=== PATIENT | female | born 1980 | race Caucasian/White ===

== ENCOUNTER 2017-08-25 13:48 | Emergency (ER) | payer SELFPAY ==
[2017-08-25] MEDS ORDERED: Dexamethasone IV* 4 MG/ML 1 ML (4 MG) IM ONE (15:44)
[2017-08-25] MEDS ORDERED: Ketorolac INJ* 30 MG/ML 1 ML VIAL IM ONE (15:45)
--- NOTE | 2017-08-25 15:48 | ED ---
Back Pain - HPI Summary HPI Summary: 37-year-old female presents with lower back pain for the past 6 days. She states she has a history of back pain. She states there is nothing different pain location. She states that oxycodone normally reliefs the pain. States she was seen at urgent care 3 days ago gave her dose of oxycodone but it was not enough per patient. She denies any fevers or IV drug use. She denies any loss of bowel or bladder. She denies any injury She states the pain only goes from her left side of her back to her left gluteal muscle. She states the pain is sharp. Does not go down the leg. No weakness. No saddle anesthesia. She has been taking Advil without relief. - History of Current Complaint Chief Complaint: EDBackInjuryPain Stated Complaint: BACK PAIN Time Seen by Provider: 08/25/17 14:56 Hx Last Menstrual Period: 2 YEARS AGO Pain Intensity: 8 - Allergies/Home Medications Allergies/Adverse Reactions: Allergies Allergy/AdvReac Type Severity Reaction Status Date / Time No Known Allergies Allergy Verified 08/25/17 14:26 PMH/Surg Hx/FS Hx/Imm Hx Endocrine/Hematology History: Denies: Hx Anticoagulant Therapy, Hx Diabetes, Hx Thyroid Disease Cardiovascular History: Denies: Hx Hypertension, Hx Pacemaker/ICD Respiratory History: Reports: Hx Asthma - W/DAILY INHALER Denies: Hx Chronic Obstructive Pulmonary Disease (COPD) GI History: Denies: Hx Ulcer History: Denies: Hx Renal Disease Neurological History: Denies: Hx Dementia, Hx Seizures Psychiatric History: Denies: Hx Substance Abuse - Surgical History Surgery Procedure, Year, and Place: 2004 appendectomy with major complications: infection and subsequent bowel resection. - Immunization History Date of Tetanus Vaccine: 2004 Date of Influenza Vaccine: no Infectious Disease History: No Infectious Disease History: Reports: Hx Clostridium Difficile Denies: Hx Hepatitis, Hx Human Immunodeficiency Virus (HIV), Hx of Known/ Suspected MRSA, Hx Shingles, Hx Tuberculosis, Hx Known/Suspected VRE, Hx Known/ Suspected VRSA, History Other Infectious Disease, Traveled Outside the [place] in Last 30 Days - Family History Known Family History: Positive: None - Social History Alcohol Use: Rare Substance Use Type: Reports: Marijuana Substance Use Comment - Amount & Last Used: former IV user Hx Tobacco Use: No Smoking Status (MU): Never Smoked Tobacco Have You Smoked in the Last Year: No Review of Systems Negative: Fever Negative: Chest Pain Negative: Shortness Of Breath Positive: Myalgia - back pain All Other Systems Reviewed And Are Negative: Yes Physical Exam Triage Information Reviewed: Yes Vital Signs On Initial Exam: Initial Vitals Temp Pulse Resp BP Pulse Ox 98.6 F 82 16 151/99 92 08/25/17 14:25 08/25/17 14:25 08/25/17 14:25 08/25/17 14:25 08/25/17 14:25 Vital Signs Reviewed: Yes Appearance: Positive: Well-Appearing Skin: Positive: Warm, Dry Head/Face: Positive: Normal Head/Face Inspection Eyes: Positive: Normal, Conjunctiva Clear Respiratory/Lung Sounds: Positive: Clear to Auscultation, Breath Sounds Present Cardiovascular: Positive: Normal, RRR Musculoskeletal: Positive: Strength/ROM Intact - back, Other - Tenderness on left side Lower back, tenderness of SI joint left, negative straight leg raise, good pulses, sensation grossly intact Neurological: Positive: Normal, Reflexes Intact - Achilles Psychiatric: Positive: Normal Diagnostics - Vital Signs Vital Signs Temp Pulse Resp BP Pulse Ox 08/25/17 14:25 98.6 F 82 16 151/99 92 - Laboratory Lab Statement: Any lab studies that have been ordered have been reviewed, and results considered in the medical decision making process. Back Pain Course/Dx - Course Course Of Treatment: 28-year-old female presents with head injury since mon. She states that the trunk door fell on her head. She denies any loss consciousness. She admits to headache. She denies any nausea vomiting. She states that the area of her forehead around her eye and nose is swelling more. She admits to nasal pressure. She denies any bleeding from her nares. She states she is unable to put on her glasses due swelling of nares. She states her vision is little bit blurry. She denies any numbness or tingling. She denies any weakness. She denies any neck pain. She denies any other injury. She admits to difficulties concentrating. She denies any photophobia. She has no medical conditions. On exam no midline tenderness. Tenderness over SI joint. Negative straight leg raise. Neurovascularly intact. Will treat with Flexeril and Medrol Dosepak. She declined imaging. Patient has follow up on Monday with primary. Patient understands agrees with plan. - Diagnoses Differential Diagnosis/HQI/PQRI: Positive: Herniated Disc, Strain, Sprain Provider Diagnoses: Back pain Discharge - Sign-Out/Discharge Documenting (check all that apply): Discharge - Discharge Plan Condition: Good Disposition: HOME Prescriptions: Methocarbamol TAB* [Robaxin 500 MG TAB*] 750 mg PO TID PRN #15 tab PRN Reason: Pain methylPREDNISolone [Medrol Dosepak 4 MG*] 4 mg PO .SEE ADE INSTRUCTION #1 packet Patient Education Materials: Back Pain (ED) Referrals: Angeles Thomas MD [Primary Care Provider] - Additional Instructions: Follow directions on package for Medrol pack Take muscle relaxers three times a day Use ibuprofen or Tylenol for pain every 6 hours ice/heat area, move as much as possible Follow up with primary within 5 days Return to ED if develop any new or worsening symptoms - Billing Disposition and Condition Condition: GOOD Disposition: HOME
[2017-08-25 16:20] VITALS: BP 146/96
== END 2017-08-25 16:19 | disposition home or self-care (01) ==
LOC: ED 13:48
DX: M54.5 Low back pain (principal)
CPT/HCPCS: 96372; 99282; J1100; J1885

== ENCOUNTER → 2018-10-11 18:10 | Emergency (ER) | payer OTHER ==
[~2018-10-11 18:10] MED LIST: Nitrofurantoin Macrocrystals* 100 MG CAP PO ONE
[2018-10-11 19:38] LABS: Urine Appearance Cloudy; Urine Bacteria 1+ (Absent); Urine Bilirubin Negative (Negative); Urine Blood Negative (Negative); Urine Color Yellow; Urine Glucose Negative (Negative); Urine Ketones Negative (Negative); Urine Nitrite Positive (Negative); Urine Protein Negative (Negative); Urine Red Blood Cell Trace(0-2/hpf) (Absent); Urine Specific Gravity 1.017 (1.010-1.030); Urine Squamous Epithelial Cell Present (Absent); Urine Urobilinogen Negative (Negative); Urine White Blood Cell Trace(0-5/hpf) (Absent)
--- NOTE | 2018-10-11 19:41 | ED ---
Abdominal Pain/Female - HPI Summary HPI Summary: 38 yo female presents to [facility] [place] ED with urinary frequency, body aches, low back pain, and lower abdominal discomfort during urination that has been getting progressively worse over the last week. She tells me that she has a history of multiple medical problems including chronic pain, prior heroin addiction, urinary incontinence, HTN, and asthma. She was unsure if her symptoms were related to something new or her chronic issues having a "flare". She denies fever, chills, vomiting, diarrhea, SOB, or chest pain. - History of Current Complaint Chief Complaint: EDAbdPain Stated Complaint: BACK PAIN/WEAKNESS PER PT Time Seen by Provider: 10/11/18 19:40 Hx Obtained From: Patient Hx Last Menstrual Period: 2 YEARS AGO Onset/Duration: Gradual Onset Severity Initially: Mild Severity Currently: Mild Pain Intensity: 3 Pain Scale Used: 0-10 Numeric Allergies/Adverse Reactions: Allergies Allergy/AdvReac Type Severity Reaction Status Date / Time No Known Allergies Allergy Verified 10/11/18 18:13 PMH/Surg Hx/FS Hx/Imm Hx Endocrine/Hematology History: Denies: Hx Anticoagulant Therapy, Hx Diabetes, Hx Thyroid Disease Cardiovascular History: Denies: Hx Hypertension, Hx Pacemaker/ICD Respiratory History: Reports: Hx Asthma - W/DAILY INHALER Denies: Hx Chronic Obstructive Pulmonary Disease (COPD) GI History: Denies: Hx Ulcer History: Denies: Hx Renal Disease Neurological History: Denies: Hx Dementia, Hx Seizures Psychiatric History: Denies: Hx Substance Abuse - Cancer History Hx Chemotherapy: No Hx Radiation Therapy: No - Surgical History Surgery Procedure, Year, and Place: 2004 appendectomy with major complications: infection and subsequent bowel resection. - Immunization History Date of Tetanus Vaccine: 2004 Date of Influenza Vaccine: no Infectious Disease History: No Infectious Disease History: Reports: Hx Clostridium Difficile Denies: Hx Hepatitis, Hx Human Immunodeficiency Virus (HIV), Hx of Known/ Suspected MRSA, Hx Shingles, Hx Tuberculosis, Hx Known/Suspected VRE, Hx Known/ Suspected VRSA, History Other Infectious Disease, Traveled Outside the [place] in Last 30 Days - Family History Known Family History: Positive: None - Social History Alcohol Use: Rare Substance Use Type: Reports: Marijuana Substance Use Comment - Amount & Last Used: former IV user Hx Tobacco Use: No Smoking Status (MU): Never Smoked Tobacco Have You Smoked in the Last Year: No Review of Systems Positive: Other - Body aches Cardiovascular: Negative Respiratory: Negative Gastrointestinal: Negative Positive: see HPI Neurological: Negative Psychological: Normal All Other Systems Reviewed And Are Negative: Yes Physical Exam - Summary Physical Exam Summary: GENERAL: NAD. WDWN. No pain distress. SKIN: No rashes, sores, lesions, or open wounds. NECK: Supple. Nontender. No lymphadenopathy. CHEST: CTAB. No r/r/w. No accessory muscle use. Breathing comfortably and in no distress. CV: RRR. Without m/r/g. Pulses intact. Cap refill <2seconds ABDOMEN: Soft. NTTP. No distention or guarding. No CVA tenderness. Bowel sounds present NEURO: Alert. PSYCH: Age appropriate behavior. Triage Information Reviewed: Yes Vital Signs On Initial Exam: Initial Vitals Temp Pulse Resp BP Pulse Ox 98.0 F 90 20 130/93 95 10/11/18 18:13 10/11/18 18:13 10/11/18 18:13 10/11/18 18:13 10/11/18 18:13 Vital Signs Reviewed: Yes Diagnostics - Vital Signs Vital Signs Temp Pulse Resp BP Pulse Ox 10/11/18 18:13 98.0 F 90 20 130/93 95 - Laboratory Lab Results: Lab Results 10/11/18 Range/Units 19:11 Urine Color Yellow Urine Appearance Cloudy Urine pH 6.0 (5-9) Ur Specific [place] 1.017 (1.010-1.030) Urine Protein Negative (Negative) Urine Ketones Negative (Negative) Urine Blood Negative (Negative) Urine Nitrate Positive A (Negative) Urine Bilirubin Negative (Negative) Urine Urobilinogen Negative (Negative) Ur Leukocyte Esterase Negative (Negative) Urine WBC (Auto) Trace(0-5/hpf) (Absent) Urine RBC (Auto) Trace(0-2/hpf) (Absent) Ur Squamous Epith Cells Present A (Absent) Urine Bacteria 1+ A (Absent) Urine Glucose Negative (Negative) Lab Statement: Any lab studies that have been ordered have been reviewed, and results considered in the medical decision making process. Abdominal Pain Fem Course/Dx - Course Course Of Treatment: UA positive. Discussed with patient that some of her symptoms could be related to her UTI and encouraged her to take the anbx to resolve her UTI and see what symptoms remain then f/u with her PCP for further management of her chronic issues. If she develops worsening discomfort, fever, or new symptoms to return to the ED. - Diagnoses Provider Diagnoses: UTI (urinary tract infection) Discharge - Sign-Out/Discharge Documenting (check all that apply): Patient Departure Patient Received Moderate/Deep Sedation with Procedure: No - Discharge Plan Condition: Stable Disposition: HOME Prescriptions: Nitrofurantoin Monohyd/M-Cryst [Macrobid 100 mg Capsule] 100 mg PO BID #10 cap Patient Education Materials: Urinary Tract Infection in Women (ED) Referrals: Angeles Thomas MD [Primary Care Provider] - 1 Week Jose Angel Rogers MD [Medical Doctor] - If Needed Additional Instructions: If you develop a fever, shortness of breath, chest pain, new or worsening symptoms - please call your PCP or go to the ED immediately. Your blood pressure was high at todays visit. Please see your primary provider within 4 weeks for recheck and re-evaluation. Please follow up with Urology at the number below regarding your urinary incontinence. - Billing Disposition and Condition Condition: STABLE Disposition: Home
[2018-10-11 20:08] VITALS: BP 121/83
--- NOTE | 2018-10-13 07:59 | ED ---
Progress - Progress Note Progress Note: Prelim urine cx reveals >100,000 e. coli. Started on macrobid. Final results pending. Course/Dx - Course Course Of Treatment: UA positive. Discussed with patient that some of her symptoms could be related to her UTI and encouraged her to take the anbx to resolve her UTI and see what symptoms remain then f/u with her PCP for further management of her chronic issues. If she develops worsening discomfort, fever, or new symptoms to return to the ED. - Diagnoses Provider Diagnoses: UTI (urinary tract infection) Discharge - Sign-Out/Discharge Documenting (check all that apply): Post-Discharge Follow Up Patient Received Moderate/Deep Sedation with Procedure: No - Discharge Plan Condition: Stable Disposition: HOME Prescriptions: Nitrofurantoin Monohyd/M-Cryst [Macrobid 100 mg Capsule] 100 mg PO BID #10 cap Patient Education Materials: Urinary Tract Infection in Women (ED) Referrals: Angeles Thomas MD [Primary Care Provider] - 1 Week Jose Angel Rogers MD [Medical Doctor] - If Needed Additional Instructions: If you develop a fever, shortness of breath, chest pain, new or worsening symptoms - please call your PCP or go to the ED immediately. Your blood pressure was high at todays visit. Please see your primary provider within 4 weeks for recheck and re-evaluation. Please follow up with Urology at the number below regarding your urinary incontinence. - Billing Disposition and Condition Condition: STABLE Disposition: Home
== END | disposition home or self-care (01) ==
LOC: ED 18:10
DX: N39.0 Urinary tract infection, site not specified (principal); M54.9 Dorsalgia, unspecified; F11.21 Opioid dependence, in remission
CPT/HCPCS: 81003; 81015; 87077; 87086; 87186; 99282; A9270-GY

== ENCOUNTER 2018-12-02 19:46 | Emergency (ER) | payer OTHER ==
--- OUTSIDE RECORDS SUMMARY | 2018-12-02 20:11 | XMS REPORT | Continuity of Care Document ---
:1980 External Reference #:[id number] Author Name Edwige Monge Care Team Providers Name Role Phone Angeles Thomas MD Primary Care Physician Unavailable Payers Date Identification Numbers Payment Provider Subscriber Policy Number: [id number] Boni Vergara Group Name: [id number] [address] PayID: [id number] [place] [address] Problems Active Problems Provider Date Asthma without status asthmaticus Angeles Thomas M.D. 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 Onset: 11/24/2017 Localized, primary osteoarthritis Yenni Bhandari M.D. Onset: 02/23/2018 Achilles tendinitis, left leg Shukri Cornelius MD Onset: 09/21/2018 Achilles tendinitis, right leg Shukri Cornelius MD Onset: 09/21/2018 Ganglion of ankle and foot Shukri Cornelius MD Onset: 09/21/2018 Family History Date Family Member(s) Observation Comments Father Hypertension Father alive and well Mother No Current Problems Mother Cervical Cancer Siblings 3 Siblings - 2 sisters, 1 brother Social History Type Date Description Comments Sex Unknown Marital Status Single Lives With Alone Occupation Currently Working Occupation [employer] Tobacco Use Start: Unknown Never Smoked Cigarettes ETOH Use Currently consumes 0-4 drinks per alcohol month Tobacco Use Start: Unknown Patient has never smoked Recreational Drug Use Former Drug User IVDA, heroin [id number] Smoking Status Reviewed: 11/23/18 Patient has never smoked Exercise Type/Frequency Does not exercise Allergies, Adverse Reactions, Alerts Description No Known Drug Allergies Medications Active Medications SIG Qnty Indications Ordering Date Provider Sertraline HCL 1 and half 45tabs Angeles 10/23/2018 50mg tablets by mouth Tracy Thomas Tablets every day Chlorthalidone 1 by mouth every 30tabs Angeles 10/23/2018 25mg day German ThomasDOsei Tablets Bupropion 1 by mouth every 30tabs F11.20 Angeles 09/14/2018 Hydrochloride ER (XL) day Tracy Thomas 300mg Tablets ER 24HR Lisinopril Take One Tablet 30tabs I10 Angeles 09/14/2018 5mg Tablets By Mouth Once Tracy Thomas Daily Ibuprofen Take One Tablet 90tabs Angeles 03/09/2018 600mg Tablets By Mouth Three William M.DOsei Times Daily as Needed Mirtazapine take 1/2 tablet 30tabs Angeles 02/06/2018 15mg by mouth nightly Tracy Thomas Tablets Tizanidine HCL 1 tab by mouth 3 90tabs F11.20 Angeles 02/06/2018 4mg times daily as Tracy Thomas Tablets needed Ventolin HFA inhale 2 puffs by 18gm Angeles 04/24/2015 mouth every 4 to Tracy Thomas 108(90Base) mcg/Act 6 hours as needed Aerosol V[employer] use as instructed 1unbridgett Santana, 10/30/2014 Leonard MCCULLOUGH Device Ondansetron dissolve one 30tabs J45.901 Angeles 08/13/2014 4mg Tablets tablet in the Tracy Thomas Dispers mouth every 8 hours as needed Singulair take 1 tablet by 30tabs Angeles 01/13/2011 10mg Tablets mouth one time Tracy Thomas daily Claritin 1 by mouth every 30tabs Angeles 12/07/2010 10mg Tablets day as needed Tracy Thomas Gabapentin Take One Tablet 90tabs [facility] 800mg By Mouth Three Tracy Thomas Tablets Times Daily Suboxone Bezirganian, 12-3mg Film MD [place] Advair Diskus inhale 1 puff by 60units [facility] mouth two times Tracy Thomas 500-50mcg/Dose daily Aerosol History Medications Lyrica take 1 capsule 60caps G89.4 [facility] 05/18/2018 - 50mg Capsules by mouth twice Tracy Thomas 06/21/2018 a day maximum daily dose of 2 Chlorthalidone Take One Tablet 30tabs I10 [facility] 04/12/2018 - 25mg Tablets By Mouth Once Tracy Thomas 09/14/2018 Daily Bupropion HCL ER (XL) 1 by mouth 30tabs F11.20 [facility] 02/06/2018 - 300mg every day Tracy Thomas 09/14/2018 Tablets ER 24HR Amlodipine Besylate 1 by mouth 30tabs I10 [facility] 02/06/2018 - 2.5mg every day Tracy Thomas 04/12/2018 Tablets Meloxicam 1 by mouth 30tabs M25.569 [facility] 11/24/2017 - 15mg Tablets every day Tracy Thomas 03/09/2018 Medroxyprogesterone one tablet 10tabs N91.1 Anastacio Serna 11/16/2017 - Acetate daily x 10 days 12/13/2017 10mg Tablets Zithromax Z-Zane 2 tabs day#1, 1 6tabs Sondra 02/18/2016 - 250mg Tablets tab daily for 4 MD Max 09/12/2017 days Prednisone 30mg daily for 42tabs J45.901 Sondra 02/11/2016 - 10mg Tablets 1 week, 20mg MD Max 09/12/2017 daily for 1 week, 10 mg daily for 1 week Zoloft Take 1 Tablet 30tabs Lencho Sheffield NP 11/05/2015 - 100mg Tablets By Mouth Every 09/12/2017 Day Clonidine HCL One tablet QHS Lencho Sheffield NP 11/05/2015 - 0.2mg Tablets 09/12/2017 Alprazolam 2 tablets QHS Lencho Sheffield NP 11/05/2015 - 1mg Tablets and 1 tablet 09/04/2017 prn daily Dexedrine 3 by mouth in 150caps Lencho Sheffield NP 11/05/2015 - 10mg Caps ER 24HR the morning and 09/12/2017 2 by mouth in the afternoon Prednisone 6 tabs for 2 42tabs J45.901 Sondra 09/22/2015 - 5mg Tablets days, 5 tabs MD Max 02/11/2016 for 2 days, 4 tabs for 2 days, 3 tabs for 2 days, 1 tab for 6 days Prednisone 6 tabs x 2 17tabs Sondra 07/17/2015 - 5mg Tablets days, 5 tabs x MD Max 09/12/2017 1 day Prednisone take 4 tabs x 1 11tabs J45.901 Lencho Sheffield NP 07/03/2015 - 10mg Tablets day; 3 tabs x 1 07/17/2015 day, 2 tabs x 1 day; 1 tab x 1 day; 1/2 tab x 1 day Doxycycline Hyclate one tablet 8caps S60.529S Lencho Sheffield NP 07/03/2015 - 100mg twice daily for 07/13/2015 Capsules 4 additional days (14 days total) Mupirocin Calcium Apply twice 15gm S60.529S Lencho Sheffield NP 07/03/2015 - 2% Cream daily to Unknown affected area Prednisone (Zane) 6 tabs for 2 42tabs J45.901 Sondra 06/24/2015 - 5mg Tablets days, 5 tabs MD Max 09/22/2015 for 2 days, 4 tabs for 2 days, 3 tabs for 2 days, 1 tab for 6 days Zithromax Z-Zane take as 6tabs J45.901 Sondra 06/24/2015 - 250mg Tablets directed- 2 MD Max 02/18/2016 tabs day#1, 1 tab day#2-4 Prednisone 3 tabs daily 30tabs Sondra 04/24/2015 - 20mg Tablets for 3 days, 2 MD Max 06/23/2015 tabs daily for 3 days, 1 tab daily for 7 days, 1/2 tab for 14 days Prednisone (Zane) take 3 tablets 22tabs Sondra 04/08/2015 - 10mg Tablets for 3 days, 2 MD Max 06/23/2015 tablets for 3 days, 1 tablet for 3 days, 1/2 tablet for 4 days Oxycodone HCL 1 tablet 4 30tabs Lencho Sheffield NP 03/10/2015 - 5mg Tablets times a day as 09/12/2017 needed for pain Prednisone 30mg daily for 42tabs Sondra 12/18/2014 - 10mg Tablets 1 week, 20mg MD Max 04/24/2015 daily for 1 week, 10 mg daily for 1 week Prednisone 20mg daily 7tabs Sondra 11/19/2014 - 20mg Tablets MD Max 12/18/2014 Prednisone 30mg daily for 42tabs Sondra 10/30/2014 - 10mg Tablets 1 week, 20mg MD Max 11/19/2014 daily for 1 week, 10 mg daily for 1 week Fluticasone Propionate 2 intranasal [facility] 10/08/2014 - puffs once Tracy Thomas 03/09/2018 50mcg/Act Suspension daily Prednisone 30mg daily for 42tabs Sondra 09/05/2014 - 10mg Tablets 1 week, 20mg MD Max 10/30/2014 daily for 1 week, 10 mg daily for 1 week Prednisone (Zane) use as directed 20tabs 493.92 Sondra 08/13/2014 - 10mg Tablets MD Max 04/08/2015 Zithromax Z-Zane take as 6tabs J45.901 Sondra 08/13/2014 - 250mg Tablets directed MD Max 06/24/2015 Pulmicort Flexhaler inhale 2 puffs 3units J45.901 Sondra 08/13/2014 - by mouth two MD Max 03/09/2018 180mcg/Act Aerosol times daily Fluticasone Propionate 2 sprays each 16gm 461.9 Sydni Ribeiro, 07/02/2014 - once nostril N.P. 07/16/2014 50mcg/Act Suspension daily Amoxicillin/Clavulanate one tablet by 20tabs 461.9 Sydni Ribeiro, 2014 - Potassium mouth twice N.P. 07/12/2014 875-125mg Tablets daily for 10 days Prednisone 3 tabs by mouth 21tabs 461.9 Sydni Ribeiro, 07/02/2014 - 20mg Tablets x 2 days, then N.P. 09/05/2014 reduce by 1/2 tablet every 2 days until done. Medrol (Zane) use as directed 20tabs Sondra 06/27/2014 - 4mg Tablets MD Max 08/12/2014 Ondansetron 1 tab by mouth 30tabs Sondra 06/27/2014 - 4mg Tablets every 8 hours MD Max 08/13/2014 Dispers as needed Pantoprazole Sodium Take 1 Tablet 30tabs Sondra 05/27/2014 - 40mg By Mouth Every MD Max 11/11/[address] Day Prednisone (Zane) Use as directed 20tabs 493.10 Sondra 05/22/2014 - 10mg Tablets MD Max 08/12/2014 Pantoprazole Sodium Take 1 Tablet 60tabs K21.9 Sondra 05/22/2014 - 20mg By Mouth Two MD Max Unknown Tablets DR Times Daily Spacer (For Inhaled Use spacer with 1units J45.901 Lencho Sheffield NP 2013 - Respiratory Medications) inhaler Unknown medications.. Pulmicort nebulizer twice 60units Sondra 12/05/2013 - 1mg/2ML Suspension a day MD Max 09/12/2017 Ondansetron 1 by mouth 30tabs 493.00 Angeles 12/05/2013 - 4mg Tablets every 8 h as Tracy Thomas 06/27/2014 Dispers needed nausea Proair HFA 2 puffs 4 times 1units 493.90 Angeles 11/07/2013 - 108(90Base) daily as needed Tracy Thomas 01/27/2014 mcg/Act Aerosol Oxycodone HCL 1 tablet by 30caps Lencho Sheffield NP 02/26/2013 - 5mg Capsules mouth four 03/10/2015 times a day as needed for headache Tramadol HCL 1-2 tablets 60tabs Lencho Sheffield NP 02/26/2013 - 50mg Tablets every 6 hours 09/12/2017 as needed Prednisone 3 tabs by mouth 21tabs 493.00 Lencho Sheffield NP 02/26/2013 - 20mg Tablets x 2 days, then 05/21/2014 reduce by 1/2 tablet every 2 days until done. Ventolin HFA 2 puffs every 6 2puffers 493.90 Angeles 08/14/2012 - 108(90Base) hours as Tracy Thomas 02/26/2013 mcg/Act Aerosol needed. Ventolin HFA inhale 2 puffs 36units 493.90 Angeles 08/14/2012 - 108(90Base) by mouth every Tracy Thomas 04/24/2015 mcg/Act Aerosol 6 hours as needed Dexedrine 3 by mouth 150caps Lencho Sheffield NP 05/25/2012 - 10mg Caps ER 24HR every in the 11/05/2015 morning and 2 by mouth at noon Vistaril 1 po q 8h prn 40caps 314.00 [facility] 05/25/2012 - 25mg Capsules anxiety Tracy Thomas 02/26/2013 Ventolin HFA 2 puffs every 6 2puffers 493.90 [facility] 01/13/2011 - 108(90Base) hours as Tracy Thomas 08/14/2012 mcg/ac Aerosol needed. Hydrocodone/Acetaminophe 1-2 tablets 60tabs 724.5 [facility] 12/14/2010 - n every 4 hours Tracy Thomas 02/26/2013 5-325mg Tablets as needed Nebulizer with supplies, 1units 493.90 [facility] 12/07/2010 - use every 4 Tracy Thomas 05/18/2018 hours as needed Advair Diskus 1 inhalation 60units 493.90 [facility] 12/07/2010 - 250-50mcg/Dose twice daily Tracy Thomas 02/26/2013 Aerosol Albuterol Sulfate inhale the 120units J45.909 Sondra 12/07/2010 - (2.5mg/3ML) contents of 1 MD Max Unknown 0.083% Nebulizer vial via nebulizer four times daily as needed Dexedrine 2 tablets twice 120caps 314.00 Angeles 10/01/2010 - 5mg Caps ER 24HR daily, early Tracy Thomas 05/25/2012 morning and mid-day Triamcinolone Acetonide apply thin film 15gm 782.1 Angeles 09/17/2010 - 0.1% twice daily Tracy Thomas 05/25/2012 Cream Dexedrine 1-2 tablets 45caps 314.00 [facility] 09/17/2010 - 5mg Caps ER 24HR once daily in Tracy Thomas 10/01/2010 the morning Hydrocodone/Acetaminophe 1 every 4 hours 40tabs 724.5 [facility] 2010 - n as needed for Tracy Thomas 10/21/2010 5-500mg Tablets pain Vicodin 1-2 by mouth 30tabs Angeles 09/17/2010 - 5-325mg Tablets every 4-6 hours Tracy Thomas 10/21/2010 and needed for pain Flexeril 2 tablets at 30tabs [facility] 09/17/2010 - 5mg Tablets bedtime Tracy Thomas 10/21/2010 Plan B take 1 tablet 1tabs [facility] 12/21/2009 - 0.75mg Tablets one time Tracy Thomas 05/04/2010 Advair Diskus 1 puff twice 60units 493.90 [facility] 08/12/2009 - 100-50mcg/Dose daily Tracy Thomas 12/07/2010 Misc Furosemide 30tabs Unknown - 20mg Tablets 03/09/2018 Losartan Potassium I10 Unknown - 50mg 05/18/2018 Tablets Zolpidem Tartrate Take 1 Tablet Unknown - 5mg Tablets By Mouth Every 05/18/2018 Day AT Bedtime as Needed Maximum Daily DO Alprazolam Take 1 Tablet Member, - 2mg Tablets By Mouth Two MD Darrion 12/25/2017 Times Daily Maximum Daily Dose Of 2 Per Day Wellbutrin XL 1 by mouth 30tabs Angeles - 300mg Tablets every day Tracy Thomas 05/18/2018 ER 24HR Xanax one by mouth up Unknown - 0.25mg Tablets to three times 12/25/2017 daily as needed for anxiety Methocarbamol Take 1 Tablet Unknown - 750mg Tablets By Mouth Three 09/12/2017 Times A Day as Needed For Pain Methylprednisolone Use as Directed Unknown - 4mg TBPK On Pack 09/12/2017 Ibuprofen as needed Unknown - 200mg Capsules 03/09/2018 Budesonide use one vial in Unknown - 0.25mg/2ML nebulizer twice Unknown Suspension daily Bupropion HCL ER (XL) 1 by mouth 30tabs Lencho Yohannes, [employer] - 300mg every day 08/26/2017 Tablets ER 24HR Trinessa 1 po qd 1tabs Angeles - 0.18/0.215/0.25 mg-3 Tracy Thomas 02/26/2013 Tablets Benadryl 1 tablet every Unknown - 25mg Capsules 6 hours as 12/07/2010 needed Advil 100caps Unknown - 200mg Capsules 03/09/2018 Albuterol Inhaler 2 puffs 4 times 2Puffer 493.90 Angeles - daily as needed Tracy Thomas 01/13/2011 Klonopin 1 tablet 4 60tabs Unknown - 1mg Tablets times daily 05/04/2010 Dexedrine 1 tablet once Unknown - 40mg Caps ER 24HR daily 05/04/2010 Lamictal 1 tablet once 30tabs Unknown - 25mg Tablets daily 05/04/2010 Medications Administered in Office Medication SIG Qnty Indications Ordering Provider Date Depomedrol 40MG Yenni Bhandari M.D. 08/22/2018 Injection Depomedrol 40MG Yenni Bhandari M.D. 08/22/2018 Injection Depomedrol 40MG Yenni Bhandari M.D. 05/21/2018 Injection Depomedrol 40MG Yenni Bhandari M.D. 05/21/2018 Injection Depomedrol 40MG Yenni Bhandari M.D. 02/23/2018 Injection Depomedrol 40MG Yenni Bhandari M.D. 02/23/2018 Injection Influenza Virus Vaccine Unknown 04/14/2014 Injection Immunizations CPT Code Status Date Vaccine Lot # [id number] Given 05/06/2014 Flu Vaccine Split Virus Preservative Free For Indiv 3Yr Older 29875 Given 02/26/2013 Flu Vaccine Split Virus Preservative Free For [id number] Indiv 3Yr Older 62465 Given 05/25/2012 Tdap - Tetanus/Diptheria/Acellular Pertussis [id number] Given 03/21/2011 Pneumonia Vaccine [id number] 22430 Given 03/21/2011 Influenza Virus 3Yrs & Over [id number] 99843 Given 05/04/2010 Influenza Virus 3Yrs & Over Vital Signs Date Vital Result Comment 11/23/2018 10:41am Height 70 inches 5'10" Weight 381.00 lb Heart Rate 70 /min BP Systolic 122 mmHg BP Diastolic 86 mmHg O2 % BldC Oximetry 96 % BMI (Body Mass Index) 54.7 kg/m2 10/23/2018 1:34pm Height 70 inches 5'10" Weight 377.00 lb Heart Rate 77 /min BP Systolic 106 mmHg BP Diastolic 70 mmHg O2 % BldC Oximetry 96 % BMI (Body Mass Index) 54.1 kg/m2 09/21/2018 2:52pm Height 70 inches 5'10" Weight 369.00 lb BP Systolic 124 mmHg BP Diastolic 74 mmHg Respiratory Rate 18 /min Pain Level 8 BMI (Body Mass Index) 52.9 kg/m2 08/22/2018 9:50am Height 70 inches 5'10" Weight 369.00 lb Heart Rate 68 /min BP Systolic 118 mmHg BP Diastolic 82 mmHg Respiratory Rate 18 /min Body Temperature 98.9 F Pain Level 5 BMI (Body Mass Index) 52.9 kg/m2 08/20/2018 2:58pm Height 70 inches 5'10" Weight 365.00 lb Heart Rate 78 /min BP Systolic Sitting 120 mmHg BP Diastolic Sitting 85 mmHg O2 % BldC Oximetry 96 % BMI (Body Mass Index) 52.4 kg/m2 06/21/2018 2:48pm Height 70 inches 5'10" Weight 361.00 lb Heart Rate 83 /min BP Systolic Sitting 136 mmHg BP Diastolic Sitting 76 mmHg O2 % BldC Oximetry 96 % BMI (Body Mass Index) 51.8 kg/m2 05/25/2018 3:11pm Height 70 inches 5'10" Weight 351.00 lb Heart Rate 70 /min BP Systolic Sitting 116 mmHg BP Diastolic Sitting 81 mmHg O2 % BldC Oximetry 97 % BMI (Body Mass Index) 50.4 kg/m2 05/21/2018 9:32am Height 70 inches 5'10" Weight 356.00 lb BP Systolic 128 mmHg BP Diastolic 78 mmHg Body Temperature 97.8 F BMI (Body Mass Index) 51.1 kg/m2 05/18/2018 4:19pm Height 70 inches 5'10" 333 Weight 353.00 lb Heart Rate 83 /min BP Systolic Sitting 128 mmHg BP Diastolic Sitting 92 mmHg O2 % BldC Oximetry 96 % BMI (Body Mass Index) 50.6 kg/m2 04/12/2018 1:24pm Height 70 inches 5'10" 333 Weight 351.00 lb Heart Rate 81 /min BP Systolic Sitting 121 mmHg BP Diastolic Sitting 75 mmHg O2 % BldC Oximetry 95 % BMI (Body Mass Index) 50.4 kg/m2 03/23/2018 2:03pm Height 70 inches 333 Weight 333.00 lb Heart Rate 72 /min BP Systolic 136 mmHg BP Diastolic 88 mmHg Respiratory Rate 16 /min Pain Level 0 BMI (Body Mass Index) 47.8 kg/m2 03/09/2018 3:43pm Height 70 inches 5'10" Weight 333.00 lb Heart Rate 66 /min BP Systolic Sitting 119 mmHg BP Diastolic Sitting 80 mmHg O2 % BldC Oximetry 98 % BMI (Body Mass Index) 47.8 kg/m2 02/23/2018 10:42am Height 70 inches 5'10" Weight 325.00 lb Heart Rate 87 /min Respiratory Rate 18 /min Pain Level 9 BMI (Body Mass Index) 46.6 kg/m2 02/06/2018 3:40pm Height 70 inches 5'10" Weight 325.00 lb Heart Rate 92 /min BP Systolic Sitting 138 mmHg BP Diastolic Sitting 96 mmHg O2 % BldC Oximetry 97 % BMI (Body Mass Index) 46.6 kg/m2 11/24/2017 11:18am Height 70 inches 5'10" Weight 303.00 lb Heart Rate 87 /min BP Systolic Sitting 132 mmHg BP Diastolic Sitting 76 mmHg O2 % BldC Oximetry 94 % BMI (Body Mass Index) 43.5 kg/m2 11/16/2017 1:17pm Height 70 inches 5'10" Weight 313.00 lb Heart Rate 68 /min BP Systolic 122 mmHg BP Diastolic 70 mmHg O2 % BldC Oximetry 96 % BMI (Body Mass Index) 44.9 kg/m2 11/06/2017 1:22pm Height 70 inches 5'10" Weight 321.00 lb Heart Rate 72 /min BP Systolic 134 mmHg BP Diastolic 84 mmHg Respiratory Rate 20 /min Body Temperature 97.3 F BMI (Body Mass Index) 46.1 kg/m2 10/19/2017 11:21am Height 70 inches 5'10" Weight 321.00 lb Heart Rate 76 /min BP Systolic Sitting 131 mmHg BP Diastolic Sitting 91 mmHg O2 % BldC Oximetry 93 % BMI (Body Mass Index) 46.1 kg/m2 09/12/2017 9:17am Weight 289.00 lb Heart Rate 64 /min BP Systolic Sitting 120 mmHg BP Diastolic Sitting 80 mmHg Body Temperature 97.9 F O2 % BldC Oximetry 92 % pt's hands are cold 02/11/2016 1:46pm Height 71 inches 5'11" Weight 439.00 lb Heart Rate 95 /min BP Systolic Sitting 148 mmHg BP Diastolic Sitting 88 mmHg Respiratory Rate 24 /min O2 % BldC Oximetry 93 % MD notified BMI (Body Mass Index) 61.2 kg/m2 07/27/2015 3:52pm Heart Rate 83 /min BP Systolic Sitting 120 mmHg BP Diastolic Sitting 70 mmHg Respiratory Rate 18 /min O2 % BldC Oximetry 98 % 07/10/2015 5:04pm Heart Rate 62 /min BP Systolic Sitting 112 mmHg BP Diastolic Sitting 80 mmHg Body Temperature 97.6 F O2 % BldC Oximetry 96 % 07/03/2015 4:17pm Height 71 inches 5'11" Weight 394.00 lb Heart Rate 74 /min BP Systolic Sitting 130 mmHg BP Diastolic Sitting 82 mmHg Respiratory Rate 13 /min Body Temperature 98.9 F O2 % BldC Oximetry 95 % BMI (Body Mass Index) 54.9 kg/m2 06/24/2015 3:51pm Height 71 inches 5'11" Weight 379.00 lb Heart Rate 87 /min BP Systolic Sitting 144 mmHg BP Diastolic Sitting 90 mmHg Respiratory Rate 24 /min O2 % BldC Oximetry 92 % BMI (Body Mass Index) 52.9 kg/m2 09/12/2014 11:29am Height 71 inches 5'11" Weight 325.00 lb Heart Rate 84 /min BP Systolic Sitting 134 mmHg BP Diastolic Sitting 80 mmHg Respiratory Rate 19 /min O2 % BldC Oximetry 97 % BMI (Body Mass Index) 45.3 kg/m2 08/13/2014 2:11pm Height 71 inches 5'11" Weight 324.00 lb Heart Rate 91 /min BP Systolic Sitting 126 mmHg BP Diastolic Sitting 70 mmHg Respiratory Rate 21 /min Body Temperature 96.0 F O2 % BldC Oximetry 92 % BMI (Body Mass Index) 45.2 kg/m2 07/02/2014 3:00pm Height 71 inches 5'11" Weight 324.00 lb Heart Rate 74 /min BP Systolic 122 mmHg BP Diastolic 60 mmHg Body Temperature 97.7 F O2 % BldC Oximetry 94 % BMI (Body Mass Index) 45.2 kg/m2 05/22/2014 2:00pm Height 71 inches 5'11" Weight 334.25 lb w/shoes on Heart Rate 64 /min BP Systolic Sitting 118 mmHg BP Diastolic Sitting 56 mmHg Respiratory Rate 18 /min Body Temperature 98.1 F O2 % BldC Oximetry 99 % BMI (Body Mass Index) 46.6 kg/m2 Neck Circumference in inches 16 05/02/2014 3:44pm Weight 341.00 lb Heart Rate 82 /min BP Systolic 122 mmHg BP Diastolic 78 mmHg O2 % BldC Oximetry 98 % 04/08/2014 10:45am Weight 324.00 lb Heart Rate 83 /min BP Systolic Sitting 118 mmHg BP Diastolic Sitting 68 mmHg Body Temperature 97.8 F 04/03/2014 1:57pm O2 % BldC Oximetry 97 % 02/14/2014 4:14pm Weight 326.00 lb Heart Rate 58 /min BP Systolic Sitting 142 mmHg BP Diastolic Sitting 88 mmHg O2 % BldC Oximetry 95 % 02/12/2014 1:39pm BP Systolic Sitting 140 mmHg BP Diastolic Sitting 90 mmHg Body Temperature 98.1 F O2 % BldC Oximetry 85 % post nebulizer: 91% 12/05/2013 2:27pm Weight 334.00 lb Heart Rate 74 /min Body Temperature 96.4 F O2 % BldC Oximetry 98 % Peak Flow Meter 350 02/26/2013 4:16pm Height 68.5 inches 5'8.50" Weight 349.75 lb Heart Rate 68 /min BP Systolic Standing 118 mmHg BP Diastolic Standing 80 mmHg O2 % BldC Oximetry 95 % Peak Flow Meter 440 BMI (Body Mass Index) 52.4 kg/m2 05/25/2012 2:53pm Height 68.5 inches 5'8.50" Weight 303.00 lb Heart Rate 80 /min BP Systolic Sitting 108 mmHg BP Diastolic Sitting 80 mmHg BMI (Body Mass Index) 45.4 kg/m2 03/21/2011 2:43pm Height 68.5 inches 5'8.50" Weight 292.00 lb Heart Rate 84 /min BP Systolic Sitting 118 mmHg BP Diastolic Sitting 72 mmHg O2 % BldC Oximetry 95 % BMI (Body Mass Index) 43.7 kg/m2 01/13/2011 10:03am Height 68.5 inches 5'8.50" Weight 316.00 lb Heart Rate 74 /min BP Systolic Sitting 128 mmHg BP Diastolic Sitting 82 mmHg O2 % BldC Oximetry 97 % BMI (Body Mass Index) 47.3 kg/m2 12/20/2010 3:48pm Height 68.5 inches 5'8.50" Weight 314.00 lb Heart Rate 64 /min BP Systolic Sitting 122 mmHg BP Diastolic Sitting 74 mmHg Body Temperature 99.0 F BMI (Body Mass Index) 47.0 kg/m2 12/14/2010 4:13pm Height 68.5 inches 5'8.50" Weight 310.00 lb Heart Rate 68 /min BP Systolic Sitting 100 mmHg BP Diastolic Sitting 62 mmHg O2 % BldC Oximetry 94 % BMI (Body Mass Index) 46.4 kg/m2 12/07/2010 4:13pm Height 68.5 inches 5'8.50" Weight 306.00 lb Heart Rate 72 /min BP Systolic Sitting 124 mmHg BP Diastolic Sitting 70 mmHg O2 % BldC Oximetry 89 % BMI (Body Mass Index) 45.8 kg/m2 10/21/2010 3:20pm Height 68.5 inches 5'8.50" Weight 308.00 lb Heart Rate 72 /min BP Systolic Sitting 110 mmHg L BP Diastolic Sitting 62 mmHg L BMI (Body Mass Index) 46.1 kg/m2 09/17/2010 9:21am Height 68.5 inches 5'8.50" Weight 325.00 lb Heart Rate 78 /min BP Systolic Sitting 110 mmHg lg cuff BP Diastolic Sitting 60 mmHg lg cuff BMI (Body Mass Index) 48.7 kg/m2 05/04/2010 4:33pm Weight 300.50 lb Heart Rate 84 /min BP Systolic 104 mmHg large cuff BP Diastolic 72 mmHg large cuff 08/12/2009 2:58pm Weight 298.00 lb Heart Rate 90 /min BP Systolic 130 mmHg BP Diastolic 90 mmHg Results Test Date Facility Test Result H/L Range Note Urinalysis Profile 10/11/2018 [facility] Urine Color Yellow [address] [place] [address] [phone] Urine Appearance Cloudy Urine Specific [place] 1.017 N 1.010-1.030 Urine pH 6.0 N 5-9 Urine Urobilinogen Negative Negative Urine Ketones Negative Negative Urine Protein Negative Negative Urine Leukocytes Negative Negative Urine Blood Negative Negative Urine Nitrite Positive Abnormal Negative Urine Bilirubin Negative Negative Urine Glucose Negative Negative Urine White Blood Cell Trace(0-5/hpf) Absent Urine Red Blood Cell Trace(0-2/hpf) Absent Urine Bacteria 1+ Abnormal Absent Urine Squamous Epithelial Cell Present Abnormal Absent Urine Culture And 10/11/2018 [facility] Urine Culture SEE RESULT [address] [place] [address] [phone] Basic Metabolic 02/13/2018 [facility] Sodium 139 mmol/L N 135- [address] [place] [address] [phone] Potassium 3.9 mmol/L N 3.5-5.0 Chloride 102 mmol/L N 101-111 Co2 Carbon Dioxide 32 mmol/L N 22-32 Anion Gap 5 mmol/L N 2-11 Glucose 80 mg/dL N 70-100 Blood Urea Nitrogen 11 mg/dL N 6-24 Creatinine 0.94 mg/dL N 0.51-0.95 BUN/Creatinine Ratio 11.7 N 8-20 Calcium 9.3 mg/dL N 8.6-10.3 Egfr Non- 66.3 >60 Egfr 80.2 >60 2 Laboratory test 02/13/2018 [facility] TSH (Thyroid 5.00 mcIU/mL N 0.34-5.[address] Stim [place]orm) [place] [address] [phone] D Dimer Quantitative 236 ng/mL High Less Than 230 3 GC/Chlamydia 11/16/2017 [facility] Chlamydia Negative Negative Amplified [place] [address] [phone] Neisseria gonorrhoeae (GC) Rna Negative Negative Laboratory test 10/19/2017 [facility] Cytology SEE RESULT [address] [place] [address] [phone] Laboratory test 10/02/2017 [facility] Hemoglobin A1c 5.6 % N 4.0-[address] (Glyco HGB) .6 [place] [address] [phone] Comp Metabolic 10/02/2017 [facility] Sodium 138 mmol/L Low 139 -[address] [place] [address] [phone] Potassium 4.4 mmol/L N 3.5-5.0 Chloride 101 mmol/L N 101-111 Co2 Carbon Dioxide 29 mmol/L N 22-32 Anion Gap 8 mmol/L N 2-11 Glucose 74 mg/dL N 70-100 Blood Urea Nitrogen 14 mg/dL N 6-24 Creatinine 0.86 mg/dL N 0.51-0.95 BUN/Creatinine Ratio 16.3 N 8-20 Calcium 9.4 mg/dL N 8.6-10.3 Total Protein 6.7 g/dL N 6.4-8.9 Albumin 3.8 g/dL N 3.2-5.2 Globulin 2.9 g/dL N 2-4 Albumin/Globulin Ratio 1.3 N 1-3 Total Bilirubin 0.50 mg/dL N 0.2-1.0 Alkaline Phosphatase 57 U/L N 34-104 Alt 24 U/L N 7-52 Ast 25 U/L N 13-39 Egfr Non- 73.5 >60 Egfr 94.5 >60 6 Laboratory test 10/02/2017 [facility] FSH (Follicle 7.1 mIU/mL [address] Stim Hormone) [place] [address] [phone] TSH (Thyroid Stim Horm) 6.05 mcIU/mL High 0.34-5.60 Laboratory test 02/11/2016 [facility] Immunoglobulin E 185 kU/L N <=[address] (Ige) [place] [address] [phone] CBC Auto Diff 02/11/2016 [facility] White Blood Count 10.1 N 3.5-10.[address] 10^3/[place] [address] [phone] Red Blood Count 4.32 10^6/uL N 4.0-5.4 Hemoglobin 11.7 g/dL Low 12.0-16.0 Hematocrit 37 % N 35-47 Mean Corpuscular Volume 85 fL N 80-97 Mean Corpuscular Hemoglobin 27 pg N 27-31 Mean Corpuscular HGB Conc 32 g/dL N 31-36 Red Cell Distribution Width 15 % N 10.5-15 Platelet Count 309 10^3/uL N 150-450 Mean Platelet Volume 8 um3 N 7.4-10.4 Abs Neutrophils 6.1 10^3/uL N 1.5-7.7 Abs Lymphocytes 1.1 10^3/uL N 1.0-4.8 Abs Monocytes 1.0 10^3/uL High 0-0.8 Abs Eosinophils 1.8 10^3/uL High 0-0.6 Abs Basophils 0 10^3/uL N 0-0.2 Abs Nucleated RBC 0.01 10^3/uL N Granulocyte % 61.1 % N 38-83 Lymphocyte % 11.2 % Low 25-47 Monocyte % 9.5 % High 1-9 Eosinophil % 17.8 % High 0-6 Basophil % 0.4 % N 0-2 Nucleated Red Blood Cells % 0.1 N Laboratory test 02/11/2016 [facility] Aspergillus Igg 85.0 mg/L N <=102 [address] [place] [address] [phone] Laboratory test 07/03/2015 [facility] Wound Culture/Sensi SEE RESULT [address] [place] [address] [phone] Laboratory test 06/24/2015 [facility] Immunoglobulin E 101 kU/L N <=214 [address] (Ige) [place] [address] [phone] Aspergillus Igg Antibodies 53.7 mg/L N <=102 12 Urinalysis Profile 03/20/2015 [facility] Urine Color Yellow N [address] [place] [address] [phone] Urine Appearance Cloudy N Urine Specific [place] 1.020 N 1.010-1.030 Urine pH 5.0 N 5-9 Urine Urobilinogen Negative N Negative Urine Ketones Negative N Negative Urine Protein Negative N Negative Urine Leukocytes Trace Abnormal Negative Urine Blood Negative N Negative Urine Nitrite Negative N Negative Urine Bilirubin Negative N Negative Urine Glucose Negative N Negative Urine White Blood Cell Trace(0-5/hpf) N Absent Urine Red Blood Cell 1+(3-5/hpf) Abnormal Absent Urine Bacteria 1+ Abnormal Absent Urine Squamous Epithelial Cell Present Abnormal Absent Comp Metabolic Panel 03/20/2015 [facility] Sodium 137 mmol/L N 133-[address] [place] [address] [phone] Potassium 4.1 mmol/L N 3.5-5.0 Chloride 101 mmol/L N 101-111 Co2 Carbon Dioxide 28 mmol/L N 22-32 Anion Gap 8 mmol/L N 2-11 Glucose 113 mg/dL High 70-100 Blood Urea Nitrogen 9 mg/dL N 6-24 Creatinine 0.99 mg/dL High 0.51-0.95 BUN/Creatinine Ratio 9.1 N 8-20 Calcium 9.1 mg/dL N 8.6-10.3 Total Protein 6.4 g/dL N 6.4-8.9 Albumin 4.0 g/dL N 3.2-5.2 Globulin 2.4 g/dL N 2-4 Albumin/Globulin Ratio 1.7 N 1-3 Total Bilirubin 0.60 mg/dL N 0.2-1.0 Alkaline Phosphatase 57 U/L N 34-104 Alt 10 U/L N 7-52 Ast 12 U/L Low 13-39 Egfr Non- 63.1 N >60 Egfr 81.2 N >60 13 Laboratory test 03/20/2015 [facility] Creatine 44 U/L N 10- [address] Kinase(CK) [place] [address] [phone] C Reactive Protein 26.71 mg/L High < 5.00 14 Troponin-I (TnI) 0.01 ng/mL N <0.03 15 Urine 03/20/2015 [facility] Amphetamine Ur Presumptive Abnormal None 16 Drug SCR [address] Screen Posi <SEE Detect ED & [place] [address] NOTE> Clinic [phone] Barbiturates Urine Screen None Detected N None Detect Benzodiazepine Urine Screen Presumptive Posi <SEE NOTE> Abnormal None Detect 17 Urine Cannabinoids Screen None Detected N None Detect Urine Cocaine Screen None Detected N None Detect Urine Opiates Screen Presumptive Posi <SEE NOTE> Abnormal None Detect 18 Urine Phencyclidine Screen None Detected N None Detect 19 Inr/Protime 03/20/2015 [facility] Inr 0.91 N 0.89-1.[address] [place] [address] [phone] Laboratory test 03/20/2015 [facility] Partial 37.6 High 26.0- 36.[address] [place] [address] Time PTT [phone] CBC Auto Diff 03/20/2015 [facility] White Blood 14.8 High 4.8- 10.[address] Count 10^3/uL [place], [place] [id number] [phone] Red Blood Count 4.73 10^6/uL N 4.0-5.4 Hemoglobin 13.4 g/dL N 12.0-16.0 Hematocrit 43 % N 35-47 Mean Corpuscular Volume 90 fL N 80-97 Mean Corpuscular Hemoglobin 28 pg N 27-31 Mean Corpuscular HGB Conc 31 g/dL N 31-36 Red Cell Distribution Width 15 % N 10.5-15 Platelet Count 253 10^3/uL N 150-450 Mean Platelet Volume 8 um3 N 7.4-10.4 Abs Neutrophils 8.9 10^3/uL High 1.5-7.7 Abs Lymphocytes 1.1 10^3/uL N 1.0-4.8 Abs Monocytes 0.8 10^3/uL N 0-0.8 Abs Eosinophils 4.0 10^3/uL High 0-0.6 Abs Basophils 0.1 10^3/uL N 0-0.2 Abs Nucleated RBC 0 10^3/uL N Granulocyte % 59.8 % N 38-83 Lymphocyte % 7.4 % Low 25-47 Monocyte % 5.4 % N 1-9 Eosinophil % 26.9 % High 0-6 Basophil % 0.5 % N 0-2 Nucleated Red Blood Cells % 0 N Laboratory test 03/20/2015 [facility] Lactic Acid 1.2 mmol/L N 0.5-2.[address] [place] [address] [phone] Manual 03/20/2015 [facility] Immature 2 % N 0-[address] [place] [address] [phone] Neutrophil % 58 % N 38-83 Band % 2 % N 0-8 Lymphocytes % 8 % Low 25-47 Monocytes % 2 % N 0-13 Eosinophils % 30 % High 0-6 RBC Morphology Normal N Normal Laboratory test 03/20/2015 [facility] Blood Culture SEE RESULT [address] [place] [address] [phone] Urine Culture And Sensitivities SEE RESULT BELOW 22 Blood Culture 07/17/2011 [facility] M <SEE [address] NOTE> [place] [address] [phone] Comp Metabolic 07/17/2011 [facility] Sodium 136 mmol/L 135-[address] [place] [address] [phone] Potassium 3.7 mmol/L 3.5-5.0 Chloride 98 mmol/L Low 101-111 Co2 (Carbon Dioxide) 29.0 mmol/L 22-32 Anion Gap 9.0 mmol/L 2-11 24 Glucose 115 mg/dL High 70-100 BUN 6 mg/dL 6-24 Creatinine 0.8 mg/dL 0.50-1.40 One Over Creatinine 1.25 BUN/Creatinine Ratio 7.5 Low 8-20 Calcium 8.4 mg/dL 8.1-9.9 Total Protein 6.1 GM/DL Low 6.2-8.1 Albumin 3.6 GM/DL 3.6-5.4 Globulin 2.5 GM/DL 2-4 Albumin/Globulin Ratio 1.4 1-3 Bilirubin Total 0.6 mg/dL 0.4-1.5 25 Alkaline Phosphatase 45 U/L 30-110 Alt (SGPT) 12 U/L Low 14-54 Ast (Sgot) 14 U/L 12-42 eGFR Non- 82.6 > 60 eGFR 106.2 > 60 26 CBC Auto Diff 07/17/2011 [facility] White Blood 15.6 CUMM High 4.8-10.[address] [place] [address] [phone] Red Cell Count 4.59 CUMM 4.2-5.4 Hemoglobin 14.0 g/dL 12.0-16.0 Hematocrit 42 % 35-47 Mean Corpuscular Volume 90 um3 79-97 Mean Corpuscular Hemoglob 30 pg 27-31 Mean Corpuscular HGB Cone 34 g/dL 32-36 Redcell Distribution WDTH 15 % 10.5-15 Platelet Count 321 CUMM 150-450 Mean Platelet Volume 7.8 um3 7.4-10.4 27 Manual Differential 07/17/2011 [facility] Polysegmented 54 % 38-[address] [place] [address] [phone] Band Neutrophil 1 % 0-8 Lymphocyte 32 % 25-47 Monocyte 4 % 0-13 Eosinophil 8 % High 0-6 Atypical Lymph 1 % 0-6 Absolute Neutrophil Count 8.5 RBC Morphology NORMAL Rapid Strep A 02/07/2010 [facility] Rapid Strep The inker and opaquer [address] <SEE NOTE> [place] [address] [phone] CBC With 01/15/2010 [facility] White Blood 9.0 CUMM 4.8-[address] Count 0.8 [place] [address] [phone] Red Cell Count 4.53 CUMM 4.2-5.4 Hemoglobin 14.1 g/dL 12.0-16.0 Hematocrit 41 % 35-47 Mean Corpuscular Volume 91 um3 79-97 Mean Corpuscular Hemoglob 31 pg 27-31 Mean Corpuscular HGB Cone 34 g/dL 32-36 Redcell Distribution WDTH 13 % 10.5-15 Platelet Count 297 CUMM 150-450 Mean Platelet Volume 6.9 um3 Low 7.4-10.4 Gran % 77.0 % 38-83 Lymph % 14.3 % Low 25-47 Mononuclear % 6.8 % 1-9 Eosinophil % 1.5 % 0-6 Basophil % 0.4 % 0-2 Abs Lymphs 1.3 1.0-4.8 Abs Mononuclear 0.6 0-0.8 Absolute Neutrophil Count 6.9 1.5-7.7 Abs Eosinophils 0.1 0-0.6 Abs Basophils 0 0-0.2 29 Comp Metabolic Panel 01/15/2010 [facility] Sodium 137 mmol/L 135-[address] [place] [address] [phone] Potassium 3.2 mmol/L Low 3.5-5.0 Chloride 102 mmol/L 101-111 Co2 (Carbon Dioxide) 25.0 mmol/L 22-32 Anion Gap 10.0 mmol/L 2-11 30 Glucose 123 mg/dL High 70-100 31 BUN 7 mg/dL 6-24 Creatinine 1.10 mg/dL 0.50-1.40 One Over Creatinine 0.90 BUN/Creatinine Ratio 6.4 Low 8-20 Calcium 9.2 mg/dL 8.1-9.9 Total Protein 7.3 GM/DL 6.2-8.1 Albumin 4.4 GM/DL 3.6-5.4 Globulin 2.9 GM/DL 2-4 Albumin/Globulin Ratio 1.5 1-3 Bilirubin Total 1.4 mg/dL 0.4-1.5 32 Alkaline Phosphatase 49 U/L 30-110 Alt (SGPT) 12 U/L Low 14-54 Ast (Sgot) 15 U/L 12-42 eGFR Non- 61.6 > 60 eGFR 74.5 > 60 33 Laboratory test 01/15/2010 [facility] Acetaminophen < 10 g/mL Low 10-30 34 [address] [place], [place] [address] [phone] Alcohol < 10.0 mg/dL None Detected 35 Salicylate < 4.0 mg/dL Less Than 30 36 TSH 1.08 MIU/ML 0.34-5.60 Urine Drug 01/15/2010 [facility] Amphetamines POSITIVE Abnormal None SCR ED [address] [facility] [place] [address] [facility] [phone] Barbituates Urine Screen NONE DETECTED None Detect Benzodiazepine Ur Screen NONE DETECTED None Detect Cannabinoid Urine Screen POSITIVE Abnormal None Detect Cocaine Metabolites Urine NONE DETECTED None Detect Opiates Urine Screen NONE DETECTED None Detect PCP Urine Screen NONE DETECTED None Detect 37 GC/Chlamydia Dna 08/13/2009 [facility] GC By Aptima NEGATIVE Negative 38 Probe [address] [place], [place] [id number] [phone] CHL By Aptima NEGATIVE Negative 39 Comp Metabolic Panel 08/12/2009 [facility] Sodium 136 mmol/L 135-145 [address] [place] [address] [phone] Potassium 4.4 mmol/L 3.5-5.0 Chloride 101 mmol/L 101-111 Co2 (Carbon Dioxide) 28.0 mmol/L 22-32 Anion Gap 7.0 mmol/L 2-11 40 Glucose 93 mg/dL 70-100 41 BUN 9 mg/dL 6-24 Creatinine 1.00 mg/dL 0.50-1.40 One Over Creatinine 1.00 BUN/Creatinine Ratio 9.0 8-20 Calcium 9.7 mg/dL 8.1-9.9 42 Total Protein 6.4 GM/DL 6.2-8.1 Albumin 4.1 GM/DL 3.6-5.4 Globulin 2.3 GM/DL 2-4 Albumin/Globulin Ratio 1.8 1-3 Bilirubin Total 1.0 mg/dL 0.4-1.5 43 Alkaline Phosphatase 56 U/L 30-110 Alt (SGPT) 14 U/L 14-54 Ast (Sgot) 18 U/L 12-42 eGFR Non- 68.7 > 60 eGFR 83.2 > 60 44 Laboratory test 08/12/2009 [facility] BHCG Quantitative < 2.1 0-[address] MIU/[place] [address] [phone] Laboratory test 08/12/2009 [facility] Cytology [address] ----- <[place] [address] NOTE> [phone] CBC With Manual 08/12/2009 [facility] White Blood Count 9.1 CUMM 4.8-10. Diff [address] [place] [address] [phone] Red Cell Count 4.76 CUMM 4.2-5.4 Hemoglobin 14.6 g/dL 12.0-16.0 Hematocrit 44 % 35-47 Mean Corpuscular Volume 92 um3 79-97 Mean Corpuscular Hemoglob 31 pg 27-31 Mean Corpuscular HGB Cone 33 g/dL 32-36 Redcell Distribution WDTH 13 % 10.5-15 Platelet Count 293 CUMM 150-450 Mean Platelet Volume 7.3 um3 Low 7.4-10.4 Polysegmented Neutrophil 58 % 38-83 Band Neutrophil 1 % 0-8 Lymphocyte 30 % 25-47 Monocyte 7 % 0-13 Eosenophil 3 % 0-6 Basophil 1 % 0-2 Absolute Neutrophil Count 5.3 RBC Morphology NORMAL 1 SEE RESULT BELOW Name: DIVYA VERGARA : [address]: Aaron Cardenas MD Acct: [id number] Unit: [id number] AGE: 38 Location: ED Re10/11/18 SEX: F Status: REG ER SPEC: [id number] MJ: 10/11/[address]: Jon BATES REQ: [id number] RECD: 10/11/18 STATUS: KENZIE SANCHEZ DR: [facility] Angeles Thomas MD _ SOURCE: URINE SPDESC: ORDERED: Urine Culture Procedure Result Reported Site Urine Culture Final 10/13/18- 1039 ML Organism 1 ESCHERICHIA COLI [place] Count >100,000 (Many) CFU/ML 1. ESCHERICHIA COLI M.I.C. RX --------- ------ Ampicillin >=32 R Cefazolin <=4 S Cefepime <=1 S Ceftriaxone <=1 S Ciprofloxacin <=0.25 S Gentamicin <=1 S Levofloxacin <=0.12 S Meropenem <=0.25 S Nitrofurantoin <=16 S Tetracycline >=16 R Pipercillin/Tazobactam <=4 S Trimethoprim/Sulfamethoxazole <=20 S Amoxicillin/Clavulanic Acid 16 I Aztreonam <=1 S Contact the Microbiology Department for any additional antibiotic reporting. * ML - Main Lab . END OF REPORT DEPARTMENT OF PATHOLOGY, [address] [place] [address] Andry Payan M.D. Director [facility] # [id number] 2 Because ethnic data is not always readily available, this report includes an eGFR for both -Americans and non- Americans. The National Kidney Disease Education Program (NKDEP) does not endorse the use of the MDRD equation for patients that are not between the ages of 18 and 70, are , have extremes of body size, muscle mass, or nutritional status, or are non- or non-. According to the National Kidney Foundation, irrespective of diagnosis, the stage of the disease is based on the level of kidney function: Stage Description GFR(mL/min/1.73 m(2)) 1 Kidney damage with normal or decreased GFR 90 2 Kidney damage with mild decrease in GFR 60-89 3 Moderate decrease in GFR 30-59 4 Severe decrease in GFR 15-29 5 Kidney failure <15 (or dialysis) 3 Please note: The following may produce a false positive D Dimer test: - Rheumatoid factor greater than 60 IU/ml - Plasma hemoglobin greater than 0.05 gm/dl - Bilirubin greater than 50 mg/dl - Lipids greater than 1000 mg/dl - FDP greater than 20 ug/ml 4 SEE RESULT BELOW Name: DIVYA VERGARA : [address]: Angeles Thomas MD Acct: [id number] Unit: [id number] AGE: 37 Location: [facility] Re10/19/17 SEX: F Status: REG REF SPEC: [id number] MJ: 10/19/17-[address]: Angeles Thomas MD REQ: [id number] RECD: 10/19/17 STATUS: SOUT _ ORDERED: TP IMAGE ANALYS, HPV/Thin Prep, HPV 16/18 GENE COMMENTS: [id number] Negative for Intraepithelial lesion or Malignancy A. Ectocervical/Endocervical Specimen Adequacy: Satisfactory of evaluation Transformation zone component identified Patient Information: HPV: High risk HPV RNA testing regardless of pap results. HPV 16/18 Genotype Reflex Actual Specimen Date: 10/19/17 LMP If Unknown: October 2016 Spec Date if unknown: 2011 ?: N Post Menopausal?: N Hysterectomy?: N Date Time Test Result Flag (u) Normal Range 10/19/17 1205 @ HPV RNA RFLX GE Negative Negative @ @ The high-risk HPV types detected by the assay include: 16, @ 18, 31, 33, 35, 39, 45, 51, 52, 56, 58, 59, 66, and 68. Signed by and Reported on: MADI Fraire(ASCP) [id number] This Pap test was evaluated with the assistance of the [employer] Test Imaging System. Due to cytologic findings at the crossbar frame wirer microscope, comprehensive manual rescreening by a Clinical Engineering Manager may be required. The Pap Smear is a screening test designed to aid in the detection of premalignant and malignant conditions of the uterine cervix. It is not a diagnostic procedure and should not be used as the sole means of detecting cervical cancer. Both false- positive and false- negative reports do occur. Depending on your risk status, a Pap smear should be obtained and evaluated every 1-3 years. END OF REPORT DEPARTMENT OF PATHOLOGY, [address] [place] [address] Anrdy Payan M.D. Director [facility] # [id number] 5 Therapeutic target for the treatment of diabetes mellitus patients is <7% HBA1C, and in selective patients <6.0%. Please refer to [place] [employer] diabetic care guidelines for further information. 6 Because ethnic data is not always readily available, this report includes an eGFR for both -Americans and non- Americans. The National Kidney Disease Education Program (NKDEP) does not endorse the use of the MDRD equation for patients that are not between the ages of 18 and 70, are , have extremes of body size, muscle mass, or nutritional status, or are non- or non-. According to the National Kidney Foundation, irrespective of diagnosis, the stage of the disease is based on the level of kidney function: Stage Description GFR(mL/min/1.73 m(2)) 1 Kidney damage with normal or decreased GFR 90 2 Kidney damage with mild decrease in GFR 60-89 3 Moderate decrease in GFR 30-59 4 Severe decrease in GFR 15-29 5 Kidney failure <15 (or dialysis) 7 Normally menstruating females - Follicular phase 3 - 9 - Mid-cycle peak 4 - 23 - Luteal phase 1 - 6 Postmenopausal females 16 - 114 8 Test Performed by: [facility] [place] [address] Reading Coach: Todd Carlin II, M.D., Ph.D. 9 ADDITIONAL INFORMATION This test was developed and its performance characteristics determined by [facility] in a manner consistent with CLIA requirements. This test has not been cleared or approved by the U.S. Food and Drug Administration. Test Performed by: [place] [address] Reading Coach: Todd Carlin II, M.D., Ph.D. 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 Acct: [id number] Unit: [id number] AGE: 35 Location: [facility] Re07/03/15 SEX: F Status: REG REF SPEC: [id number] MJ: 07/03/15-[address]: Lencho Sheffield NP REQ: [id number] RECD: 07/06/15-1114 STATUS: COMP _ SOURCE: WOUND SPDESC: ORDERED: Culture Stain Specimen Description PURULENT DRAINAGE FROM BLISTER Procedure Result Reported Site Wound/Misc Gram Stain Final 07/06/15- 1449 ML 1+ Neutrophils 1+ Epithelial Cells No Organisms Seen Wound/Misc Culture Final 07/08/15- 0955 ML Organism 1 NORMAL EBONY Quantity 1+ * ML - [facility] ([facility]) . END OF REPORT * ML=Testing performed at [facility] DEPARTMENT OF PATHOLOGY, [address] [place] [address] Andry Payan M.D. Director [facility] # [id number] 11 Test Performed by: [address] [address] Reading Coach: Todd Carlin II, M.D., Ph.D. 12 Test Performed by: [facility] [address] [place] [address] Reading Coach: Todd Carlin II, M.D., Ph.D. 13 Because ethnic data is not always readily available, this report includes an eGFR for both -Americans and non- Americans. The National Kidney Disease Education Program (NKDEP) does not endorse the use of the MDRD equation for patients that are not between the ages of 18 and 70, are , have extremes of body size, muscle mass, or nutritional status, or are non- or non-. According to the National Kidney Foundation, irrespective of diagnosis, the stage of the disease is based on the level of kidney function: Stage Description GFR(mL/min/1.73 m(2)) 1 Kidney damage with normal or decreased GFR 90 2 Kidney damage with mild decrease in GFR 60-89 3 Moderate decrease in GFR 30-59 4 Severe decrease in GFR 15-29 5 Kidney failure <15 (or dialysis) 14 Acute inflammation: >10.00 15 Reference Range and Interpretation: TnI (ng/mL) Interpretation Less Than 0.03 ng/mL Not supportive of diagnosis of CO 0.03 - 0.50 ng/mL Indeterminate: suggest serial studies if clinically indicated. Greater than 0.5 ng/mL Consistent with diagnosis of CO 16 Presumptive Positive 17 Presumptive Positive 18 Presumptive Positive 19 The urine specimen was tested at the listed cutoffs: Drug class test level (ng/mL) Amphetamines 500 Barbituates 200 Benzodiazepine metabolites 200 Cocaine metabolites 150 Cannabinoids 50 Opiates 300 Pcp 25 This is a screening procedure. Positive results are not confirmed. Specimen was received without chain of custody. Results should be used for medical purposes only. 20 Effective immediately, due to a laboratory mean normal Protime change, the reference range for the INR has changed. 21 SEE RESULT BELOW Name: RACHELL VERGARAKELLY Kirk : [address]: Jimmy Adames DO Acct: [id number] Unit: [id number] AGE: 35 Location: ED Re03/20/15 SEX: F Status: DEP ER SPEC: [id number] MJ: 03/20/15 [facility] DR: Jimmy Adames DO REQ: [id number] RECD: 03/20/15 STATUS: KENZIE SANCHEZ DR: [facility] Angeles Thomas MD _ SOURCE: BLOOD,VENO SPDESC: ORDERED: Blood Cult Procedure Result Verified Site Aerobic Culture Bottle Final 03/25/15- 2145 ML No Growth Day 5 Anaerobic Culture Bottle Final 03/25/15- 2145 ML No Growth Day 5 * ML - [facility] ([facility]) . END OF REPORT * ML=Testing performed at Main Lab DEPARTMENT OF PATHOLOGY, [address] [place] [address] Andry Payan M.D. Director [facility] # [id number] 22 SEE RESULT BELOW Name: DIVYA VERGARA : [address]: Jimmy Adames DO Acct: [id number] Unit: [id number] AGE: 35 Location: ED Re03/20/15 SEX: F Status: DEP ER SPEC: [id number] MJ: 03/20/[address]: Jimmy Adames DO REQ: [id number] RECD: 03/20/15 STATUS: KENZIE SANCHEZ DR: Angeles Thomas MD _ SOURCE: URINE SPDESC: ORDERED: Urine Culture Procedure Result Verified Site Urine Culture Final 03/22/15- 1114 ML Organism 1 NORMAL EBONY [place] Count 25-50,000 (Moderate) CFU/ML * ML - MAIN LAB ([facility]) . END OF REPORT * ML=Testing performed at Main Lab DEPARTMENT OF PATHOLOGY, [address] [place] [address] Andry Payan M.D. Director [facility] # [id number] RUN DATE: 07/22/11 [facility] NMI LIVE PAGE 1 RUN TIME: 2018 Specimen Inquiry RUN USER: INTERFACE Name: DIVYA VERGARA Status: SARAH ER Re07/17/11 Age/Sex: 31/F Unit#: [id number] Location: [facility] : [birth year] SPEC #: [id number] MJ: 07/17/11 STATUS: COMP REQ #: [id number] RECD: 07/17/11-[address]: Todd Benjamin MD SOURCE: BLOOD ENTR: 07/17/[address]: William MCCULLOUGH, Angeles Porter SPDESC: BLOOD,VENO ORDERED: BLOOD CULTURE ACT WKST: BC 07/18/11 #1 Procedure Result Verified Site > AEROBIC CULTURE BOTTLE Final 07/22/112018 ML NO GROWTH AFTER 5 DAYS > ANAEROBIC CULTURE BOTTLE Final 07/22/112018 ML NO GROWTH AFTER 5 DAYS ML - [facility] Permit #[id number] [address] [place] [address] DEPARTMENT OF PATHOLOGY, [address] [place] [address] [facility] Permit #[id number] Tracy Henry M.D. Rotor Coil Taper 24 Anion gap measurement may be of limited value in the presence of any alkalosis, especially in a combined acid base disorder. . 25 A metabolite of Naproxen, O-desmethylnaproxen, has been shown to interfere with the [place] method for measuring total bilirubin. Samples from patients who have taken Naproxen have shown spurious elevation in total bilirubin levels. 26 Because ethnic data is not always readily available, this report includes an eGFR for both -Americans and non- Americans. The National Kidney Disease Education Program (NKDEP) does not endorse the use of the MDRD equation for patients that are not between the ages of 18 and 70, are , have extremes of body size, muscle mass, or nutritional status, or are non- or non-. According to the National Kidney Foundation, irrespective of diagnosis, the stage of the disease is based on the level of kidney function: Stage Description GFR(mL/min/1.73 m(2)) 1 Kidney damage with normal or decreased GFR 90 2 Kidney damage with mild decrease in GFR 60-89 3 Moderate decrease in GFR 30-59 4 Severe decrease in GFR 15-29 5 Kidney failure <15 (or dialysis) 27 Imm. NE 1 28 The inker and opaquer and regulatory agencies both recommend that a throat culture for beta strep be performed if a Rapid Group A Strep assay yields a negative result. Therefore a culture will be automatically performed on all negative samples. POSITIVE FOR GROUP A STREP BY ENZYME IMMUNOASSAY 29 Lymphopenia % 30 Anion gap measurement may be of limited value in the presence of any alkalosis, especially in a combined acid base disorder. . 31 Note change in reference range as of 01/03/08. The change was based on recommendations from the [place] [employer]. 32 A metabolite of Naproxen, O-desmethylnaproxen, has been shown to interfere with the Jendrassik-[place] method for measuring total bilirubin. Samples from patients who have taken Naproxen have shown spurious elevation in total bilirubin levels. 33 Because ethnic data is not always readily available, this report includes an eGFR for both -Americans and non- Americans. The National Kidney Disease Education Program (NKDEP) does not endorse the use of the MDRD equation for patients that are not between the ages of 18 and 70, are , have extremes of body size, muscle mass, or nutritional status, or are non- or non-. According to the National Kidney Foundation, irrespective of diagnosis, the stage of the disease is based on the level of kidney function: Stage Description GFR(mL/min/1.73 m(2)) 1 Kidney damage with normal or decreased GFR 90 2 Kidney damage with mild decrease in GFR 60-89 3 Moderate decrease in GFR 30-59 4 Severe decrease in GFR 15-29 5 Kidney failure <15 (or dialysis) 34 TOXIC LEVELS: GREATER THAN 150 MCG/ML @ 4HR POST INGEST GREATER THAN 50 MCG/ML @ 12HR POST INGEST The detection limit for ACETAMINOPHEN is 10.0 mcg/ml . Values less than 10.0 mcg/ml cannot be accurately measured. . 35 The detection limit for ETHANOL is 10.0 mg/dl . Values less than 10.0 mg/dl cannot be accurately measured. . 36 The detection limit for SALICYLATE is 4.0 mg/dl. Values less than 4.0 mg/dl cannot be accurately measured. . 37 THE URINE SPECIMEN WAS TESTED AT THE LISTED CUTOFFS: DRUG CLASS TEST LEVEL (NG/ML) AMPHETAMINES 300 BARBITUATES 200 BENZODIAZEPINE METABOLITES 200 COCAINE METABOLITES 300 CANNABINOIDS 25 OPIATES 200 PCP 25 THIS IS A SCREENING PROCEDURE. POSITIVE RESULTS ARE NOT CONFIRMED. SPECIMEN WAS RECEIVED WITHOUT CHAIN OF CUSTODY. RESULTS SHOULD BE USED FOR MEDICAL PURPOSES ONLY. . 38 . A negative result does not preclude the presence of a C.trachomatis or N.gonorrhoeae infection because results are dependent on adequate specimen collection, absence of inhibitors, and sufficient rRNA to be detected. Test results may be affected by improper specimen collection, improper specimen storage, technical error, or specimen mixup. . 39 . A negative result does not preclude the presence of a C.trachomatis or N.gonorrhoeae infection because results are dependent on adequate specimen collection, absence of inhibitors, and sufficient rRNA to be detected. Test results may be affected by improper specimen collection, improper specimen storage, technical error, or specimen mixup. . 40 Anion gap measurement may be of limited value in the presence of any alkalosis, especially in a combined acid base disorder. . 41 Note change in reference range as of 01/03/08. The change was based on recommendations from the [place] [employer]. 42 Please note change in reference range effective 07 . 43 A metabolite of Naproxen, O-desmethylnaproxen, has been shown to interfere with the Jendrassik-[place] method for measuring total bilirubin. Samples from patients who have taken Naproxen have shown spurious elevation in total bilirubin levels. 44 Because ethnic data is not always readily available, this report includes an eGFR for both -Americans and non- Americans. The National Kidney Disease Education Program (NKDEP) does not endorse the use of the MDRD equation for patients that are not between the ages of 18 and 70, are , have extremes of body size, muscle mass, or nutritional status, or are non- or non-. According to the National Kidney Foundation, irrespective of diagnosis, the stage of the disease is based on the level of kidney function: Stage Description GFR(mL/min/1.73 m(2)) 1 Kidney damage with normal or decreased GFR 90 2 Kidney damage with mild decrease in GFR 60-89 3 Moderate decrease in GFR 30-59 4 Severe decrease in GFR 15-29 5 Kidney failure <15 (or dialysis) 45 * MALES: < 5.0 MIU/ML NON FEMALES < 5.0 MIU/ML APPROX GESTATIONAL AGE APPROX HCG RANGE 0-1 WEEK < 5.0-50 1-2 WEEKS 50-500 2-3 WEEKS 100-5000 3-4 WEEKS 500-10,000 1-2 MONTHS 10,000-200,000 2-3 MONTHS 15,000-100,000 PLEASE NOTE: The intended use of this assay is the quantitative determination of HCG in human serum or plasma for the early detection of . These assays should not be used to diagnose any condition unrelated to . If an HCG level is inconsistent with, or unsupported by, clinical evidence, results should be confirmed by an alternate HCG method. . 46 ---- RUN DATE: 08/13/09 [facility] NMI LIVE PAGE 1 RUN TIME: 1550 Specimen Inquiry RUN USER: INTERFACE -- Name: DIVYA VERGARA [facility]#: [id number] Status: REG REF Re08/12/09 Age/Sex: 29/F Unit#: [id number] Location: [facility]. : 78 -- Specimen: [id number] SOUT Spec Date: 08/12/[address]: [place] Thomas MD Spec Type: CYTOLOGY Received: 08/13/09-1024 Copies to: SOURCE ECTOCERVICAL/ENDOCERVICAL Thin Prep with Reflex HPV Test PATIENT INFORMATION ACTUAL COLLECTION DATE: 08/12/09 PREVIOUS ABNORMAL PAP SMEARS No LAST MENSTRUAL PERIOD: 08/09/09 ADEQUACY OF SPECIMEN Satisfactory for evaluation * Transformation zone component identified * DIAGNOSIS NEGATIVE FOR INTRAEPITHELIAL LESION OR MALIGNANCY * This Pap test was evaluated with the assistance of the Jibe MobilePrep Pap Test Imaging System. However, due to technical or cytologic issues, the imaging could not be completed. Comprehensive manual rescreening by a Clinical Engineering Manager was performed. The Pap Smear is a screening test designed to aid in the detection of premalign ant and malignant conditions of the uterine cervix. It is not a diagnostic procedure a nd should not be used as the sole means of detecting cervical cancer. Both false- positiv e and false-negative reports do occur. Depending on your risk status, a Pap smear ryne uld be obtained and evaluated every one to three years. Initial evaluation performed by Cindy VASQUEZ(ASCP) 08/13/09 Final Interpretation electronically signed by: Cindy VASQUEZ(ASCP) 08/13/09 1549 -- -- DEPARTMENT OF PATHOLOGY, [address] [place] [address] [facility] Permit #[id number] Tracy Henry M.D. Naval Inspector Dir tita -- Procedures Date Code Description Status 08/22/2018 Inject/Drain Joint/Bursa Major W/O US Completed 05/21/2018 Inject/Drain Joint/Bursa Major W/O US Completed 02/23/2018 Inject/Drain Joint/Bursa Major W/O US Completed 02/22/2018 91883 ECHO Transthoracic, Real-Time 2D With Doppler And Color Completed Flow 02/22/2018 56421 ECHO Transthoracic, Real-Time 2D With Doppler And Color Completed Flow 11/10/2017 [id number] Mammogram Completed 10/01/2014 98702 Polysomnography Sleep Staging 4+ Parameters W/Cpap Completed 07/09/2014 71493 Polysomnography Sleep Staging 4+ Parameters Completed 04/03/2014 89770 Noninvasive Ear Or Pulse Oximetry For Oxygen Saturation Completed 03/21/2011 23145 Noninvasive Ear Or Pulse Oximetry For Oxygen Saturation Completed 01/13/2011 86860 Noninvasive Ear Or Pulse Oximetry For Oxygen Saturation Completed 01/06/2011 04797 ECHO Transthoracic, Real-Time 2D With Doppler And Color Completed Flow 12/07/2010 47987 Noninvasive Ear Or Pulse Oximetry For Oxygen Saturation Completed Encounters Type Date Location Provider Dx Diagnosis Office Visit 10/23/2018 [facility] Internal [place] Thomas, N39.0 Urinary tract 1:00p Medicine - Sergio Molina infection, site not specified F33.9 Major depressive disorder, recurrent, unspecified R60.0 Localized edema Office Visit 09/21/2018 2:30p Orthopedic Shukri Cornelius M76.61 [facility] abreuinicindy, right C.M.A. leg M76.62 Achilles tendinitis, left leg M67.472 Ganglion, left ankle and foot Office Visit 08/20/2018 2:40p [facility] Internal [place] I10 Essential ( primary) Karsten Thomas M.D. hypertension Phoebeob Z12.31 Encntr screen mammogram for malignant neoplasm of breast R92.8 Oth abn and inconclusive findings on dx imaging of breast M79.673 Pain in unspecified foot Office Visit 06/21/2018 2:40p [facility] Internal [place] I10 Essential ( primary) Karsten Thomas M.D. hypertension Phoebeob R63.5 Abnormal weight gain Office Visit 05/25/2018 2:40p [facility] Internal [place] I10 Essential ( primary) Karsten Thomas M.D. hypertension Phoebeob M67.472 Ganglion, left ankle and foot Office Visit 05/18/2018 4:00p [facility] Internal [place] Thomas G89.4 Chronic pain Medicine Johnathan Hill M.D. syndrome I10 Essential (primary) hypertension Office Visit 04/12/2018 1:00p [facility] Internal [place] I10 Essential ( primary) Karsten Thomas M.D. hypertension Phoebeob M76.60 Achilles tendinitis, unspecified leg Office Visit 03/23/2018 2:00p Orthopedic Services Yenni Bhandari, M25.561 Pain in right Of C.M.A. M.D. knee M25.462 Effusion, left knee M25.461 Effusion, right knee M25.562 Pain in left knee M17.0 Bilateral primary osteoarthritis of knee E66.01 Morbid (severe) obesity due to excess calories Z68.42 Body mass index (BMI) 45.0-49.9, adult Office Visit 03/09/2018 3:40p [facility] Internal [place] I10 Essential ( primary) Karsten Thomas M.D. hypertension Ccmob Z68.42 Body mass index (BMI) 45.0-49.9, adult Office Visit 02/23/2018 10:00a Orthopedic Services Yenni Thony, M25.562 Pain in left Of C.M.A. M.D. knee M25.561 Pain in right knee M25.461 Effusion, right knee M25.462 Effusion, left knee M17.0 Bilateral primary osteoarthritis of knee F11.20 Opioid dependence, uncomplicated E66.01 Morbid (severe) obesity due to excess calories Z68.42 Body mass index (BMI) 45.0-49.9, adult Office Visit 02/06/2018 3:40p [facility] Internal [place] F11.20 Opioid dependence, Karsten Thomas M.D. uncomplicated Ccmob M25.569 Pain in unspecified knee R60.0 Localized edema I10 Essential (primary) hypertension Office Visit 11/24/2017 11:20a [facility] Internal [place] M25.569 Pain in Karsten Thomas M.D. unspecified knee Ccmob F11.20 Opioid dependence, uncomplicated Office Visit 11/16/2017 1:30p [facility]ast[facility] S[facility], N91.1 [facility] amenorrhea T40.2x5D Adverse effect of other opioids, subsequent encounter Office Visit 11/06/2017 1:00p Surgical Radha Alcantar, L72.3 Sebaceous cyst [facility] Office Visit 10/19/2017 11:20a [facility] Internal [place] Z12.4 Encounter for Karsten Thomas M.D. screening for malignant neoplasm of cervix N63.10 Unspecified lump in the right breast, unspecified quadrant R94.6 Abnormal results of thyroid function studies N91.2 Amenorrhea, unspecified D22.9 Melanocytic nevi, unspecified Office Visit 09/12/2017 9:00a [facility] Internal [place] D48.61 Neoplasm of Karsten Thomas M.D. uncertain Ccmob behavior of right breast N91.2 Amenorrhea, unspecified R73.01 Impaired fasting glucose Office Visit 02/11/2016 Pulmonology And Sondra J45.901 Unspecified asthma 1:15p [facility] Max with (acute) Laboratory Helper exacerbation G47.33 Obstructive sleep apnea (adult) (pediatric) E66.2 Morbid (severe) obesity with alveolar hypoventilation Office Visit 07/27/2015 3:15p Pulmonology And Sondra G47.33 Obstructive sleep [facility] apnea (adult) Laboratory Helper (pediatric) J45.901 Unspecified asthma with (acute) exacerbation E66.01 Morbid (severe) obesity due to excess calories Office Visit 07/10/2015 4:20p [facility] Internal Lencho Sheffield, S60.522D Blister Medicine - LABORATORY EQUIPMENT INSTALLER (nonthermal) of Ccmob left hand, subsequent encounter S60.521D Blister (nonthermal) of right hand, subsequent encounter Office Visit 07/03/2015 4:00p [facility] Internal Lencho Sheffield J45.901 Unspecified asthma Medicine - LABORATORY EQUIPMENT INSTALLER with (acute) Ccmob exacerbation R60.0 Localized edema S60.521A Blister (nonthermal) of right hand, initial encounter Office Visit 06/24/2015 Pulmonology And Sondra J45.901 Unspecified asthma 3:15p [facility] with (acute) Laboratory Helper exacerbation G47.33 Obstructive sleep apnea (adult) (pediatric) E66.01 Morbid (severe) obesity due to excess calories K21.9 Gastro-esophageal reflux disease without esophagitis Office Visit 09/12/2014 11:30a Pulmonology And Sondra 493.92 Asthma Unspec W/ [facility] Acute Exacerbation Laboratory Helper 327.23 Obstructive Sleep Apnea Adult & Pediatric 278.01 Obesity Morbid 530.81 Esophageal Reflux Office Visit 08/13/2014 2:00p Pulmonology And Sondra 327.23 Obstructive Sleep [facility] Apnea Adult & Laboratory Helper Pediatric 493.92 Asthma Unspec W/ Acute Exacerbation 278.01 Obesity Morbid 530.81 Esophageal Reflux Office Visit 07/02/2014 3:00p [facility] Internal Sydni Ribeiro, 461.9 Sinusitis Acute Medicine - Ccmob N.P. Unspec 461.0 Sinusitis Acute Maxillary 493.92 Asthma Unspec W/ Acute Exacerbation Office Visit 05/22/2014 1:00p Pulmonology And Sondra 493.10 Asthma Intrinsic [facility] Unspecified Laboratory Helper 477.9 Rhinitis Allergic Cause Unspec 530.81 Esophageal Reflux 278.01 Obesity Morbid 780.59 Sleep Disturbances Other Office Visit 05/02/2014 3:30p [facility] Internal Lencho Sheffield NP 493.90 Asthma Unspec W/O Medicine - Status Asthmaticus Ccmob Office Visit 04/08/2014 11:00a [facility] Internal Lencho Sheffield NP 493.90 Asthma Unspec W/O Medicine - Status Asthmaticus Ccmob Office Visit 02/14/2014 4:00p [facility] Internal Lencho Sheffield NP 493.90 Asthma Unspec W/O Medicine - Status Asthmaticus Ccmob Office Visit 02/12/2014 1:30p [facility] Internal Lencho Sheffield NP 493.92 Asthma Unspec W/ Medicine - Acute Exacerbation Ccmob Office Visit 12/05/2013 2:20p [facility] Internal [place] 493.00 Asthma Extrinsic Karsten Thomas M.D. Unspecified Ccmob Office Visit 02/26/2013 4:00p [facility] Internal [place] 493.00 Asthma Extrinsic Medicine Johnathan Thomas M.D. Unspecified Ccmob v04.81 Need For Prophylactic Vaccination & Inoculation/Influenza 784.0 Headache Office Visit 05/25/2012 2:40p [facility] Internal [place] 314.00 Attention Deficit Karsten Thomas M.D. Disorder W/O Ccmob Mention Of Hyperactivity E906.0 Bite Dog v06.1 Wdfivbgjwz-Fvuklrg-Lwaolrhi Combined (DTaP) Office Visit 03/21/2011 DO Not Use [place] 493.90 Asthma Unspec 2:40p Marline Thomas M.D. W/O Status Asthmaticus 314.00 Attention Deficit Disorder W/O Mention Of Hyperactivity v04.81 Need For Prophylactic Vaccination & Inoculation/Influenza v03.82 Streptococcus Pneumoniae Vaccination Spec Other Office Visit 01/13/2011 DO Not Use [place] 493.90 Asthma Unspec 10:00a Marline Thomas M.D. W/O Status Asthmaticus 724.5 Backache Unspec 799.02 Hypoxemia Office Visit 12/20/2010 3:40p DO Not Use Sydni Varn, 787.01 Nausea W/ Laboratory Helper-[place] N.P. Vomiting 919.4 Injury Superficial Insect Bite Oth Mult Unsp Nonv W/O Infect Office Visit 12/14/2010 DO Not Use [place] 493.90 Asthma Unspec 4:20p Marline Thomas M.D. W/O Status Asthmaticus 724.5 Backache Unspec 723.1 Cervicalgia 799.02 Hypoxemia Office Visit 12/07/2010 DO Not Use [place] 493.90 Asthma Unspec W/O 4:00p Marline Thomas M.D. Status Asthmaticus Office Visit 10/21/2010 DO Not Use [place] V70.3 Examination Other 3:20p Marline Thomas M.D. Medical For Administrative Purpose 782.3 Edema 724.5 Backache Unspec 314.00 Attention Deficit Disorder W/O Mention Of Hyperactivity Office Visit 09/17/2010 9:20a DO Not Use [place] 724.5 Backache Marline Thomas M.D. Unspec 314.00 Attention Deficit Disorder W/O Mention Of Hyperactivity 782.1 Rash & Other Nonspec Skin Eruption Office Visit 05/04/2010 DO Not Use [place] 493.90 Asthma Unspec 4:15p Marline Thomas M.D. W/O Status Asthmaticus v04.81 Need For Prophylactic Vaccination & Inoculation/Influenza Office Visit 12/21/2009 DO Not Use [place] V25.09 Contraceptive 4:15p Marline Thomas M.D. Management Other 493.90 Asthma Unspec W/O Status Asthmaticus 620.2 Ovarian Cyst Other & Unspec Office Visit 08/12/2009 3:00p DO Not Use Mor Thomas, 789.9 Abdomen & AT [facility] Tracy Pelvis Symptoms Other V72.31 Routine Tour Agent Examination 493.90 Asthma Unspec W/O Status Asthmaticus Plan of Treatment Future Appointment(s):01/24/2019 3:40 pm - [place] Thomas M.D. at [facility] [place] Thomas M.D.I10 Essential ( primary) hypertensionComments:Your blood pressure is fine. Continue the same medication Keep up going to the gym - work in the poolFoll up:2 months - pls put her on the xqxfpwV40.9 Major depressive disorder, recurrent, unspecifiedComments:Increase the sertraline to 75 mg daily (one and half pills) Reduce the mirtazepine to half tablet daily
[2018-12-02] MEDS ORDERED: Morphine 4 MG/ML VIAL (1 ml) 4 MG/ML VIAL IV ONE (20:47)
[2018-12-02] MEDS ORDERED: Metoclopramide IV* 5 MG/ML 2 ML VIAL IV SLOW PU ONE (20:47)
[2018-12-02] MEDS ORDERED: Ketorolac INJ* 30 MG/ML 1 ML VIAL IV PUSH ONE (20:47)
[2018-12-02] MEDS ORDERED: NS 0.9% 1000 ML** 1,000 ML IV ONE (20:47)
--- NOTE | 2018-12-02 20:58 | ED ---
Back Pain - HPI Summary HPI Summary: Patient is a 38 year old F presenting to [facility] with a chief complaint of intermittent right flank and right lower back pain since this morning, 12/02/18, rated at 7/10 in severity, per triage, described as a slow rolling throb. Patient reports that she thought she was constipated so she took a dose of Magnesia yesterday (12/01/18) at 1730 which led to a small bowel movement 30 minutes later. Patient reports that she felt nausea and stomach distension at that time. Patient reports at midnight last night (12/02/18) she took another dose of magnesia after which she had another small bowel movement. Patient reports that when she woke up this morning she had a small bowel movement without taking medications but after which she started feeling pain in her lower back. Patient reports from (3 days ago) to Monday (1 day ago) her stomach felt hard and she felt nausea but reports the pain was no where near as bad as today. Patient reports diaphoresis and a measured temperature in the 70s F. Patient reports she took Zofran a few times due to the nausea. Patient denies front pain, vomiting, dysuria, and fever. Symptoms aggravated by nothing. Symptoms alleviated by nothing. Per triage, patient denies hx of kidney stones. - History of Current Complaint Chief Complaint: EDFlankPain Stated Complaint: BACK PAIN PER PT Time Seen by Provider: 12/02/18 20:38 Hx Obtained From: Patient Hx Last Menstrual Period: 2 YEARS AGO Onset/Duration: Lasting Hours - since this morning, Still Present Onset/Duration: Started Hours Ago, Still Present Timing: Intermittent Pain Intensity: 7 Pain Scale Used: 0-10 Numeric Character: Throbbing Aggravating Symptom(s): Nothing Alleviating Symptom(s): Nothing Associated Signs And Symptoms: Positive: Flank Pain, Other - denies front pain, vomiting, dysuria reports constipation; reports nausea, constipation, diaphoresis. Negative: Fever - Allergies/Home Medications Allergies/Adverse Reactions: Allergies Allergy/AdvReac Type Severity Reaction Status Date / Time No Known Allergies Allergy Verified 10/11/18 18:13 PMH/Surg Hx/FS Hx/Imm Hx Endocrine/Hematology History: Denies: Hx Anticoagulant Therapy, Hx Diabetes, Hx Thyroid Disease Cardiovascular History: Denies: Hx Hypertension, Hx Pacemaker/ICD Respiratory History: Reports: Hx Asthma - W/DAILY INHALER Denies: Hx Chronic Obstructive Pulmonary Disease (COPD) GI History: Denies: Hx Ulcer History: Denies: Hx Renal Disease Neurological History: Denies: Hx Dementia, Hx Seizures Psychiatric History: Denies: Hx Substance Abuse - Cancer History Hx Chemotherapy: No Hx Radiation Therapy: No - Surgical History Surgery Procedure, Year, and Place: 2004 appendectomy with major complications: infection and subsequent bowel resection. - Immunization History Date of Tetanus Vaccine: 2004 Date of Influenza Vaccine: no Infectious Disease History: Yes Infectious Disease History: Reports: Hx Clostridium Difficile Denies: Hx Hepatitis, Hx Human Immunodeficiency Virus (HIV), Hx of Known/ Suspected MRSA, Hx Shingles, Hx Tuberculosis, Hx Known/Suspected VRE, Hx Known/ Suspected VRSA, History Other Infectious Disease, Traveled Outside the [place] in Last 30 Days - Family History Known Family History: Positive: None - Social History Alcohol Use: Rare Hx Substance Use: Yes Substance Use Type: Reports: Marijuana Substance Use Comment - Amount & Last Used: former IV user Hx Tobacco Use: No Smoking Status (MU): Never Smoked Tobacco Have You Smoked in the Last Year: No Review of Systems Positive: Skin Diaphoresis. Negative: Fever Positive: Nausea, Other - Constipation. Negative: Vomiting Negative: dysuria Musculoskeletal: Other - denies front pain All Other Systems Reviewed And Are Negative: Yes Physical Exam - Summary Physical Exam Summary: VITAL SIGNS: Reviewed. GENERAL: Patient is a Morbidly obese FEMALE who is lying comfortable in the stretcher. Patient is not in any acute respiratory distress. HEAD AND FACE: No signs of trauma. No ecchymosis, hematomas or skull depressions. No sinus tenderness. EYES: PERRLA, EOMI x 2, No injected conjunctiva, no nystagmus. EARS: Hearing grossly intact. Ear canals and tympanic membranes are within normal limits. MOUTH: Oropharynx within normal limits. NECK: Supple, trachea is midline, no adenopathy, no JVD, no carotid bruit, no c- spine tenderness, neck with full ROM CHEST: Symmetric, no tenderness at palpation LUNGS: Clear to auscultation bilaterally. No wheezing or crackles. CVS: Regular rate and rhythm, S1 and S2 present, no murmurs or gallops appreciated. ABDOMEN: RLQ tenderness EXTREMITIES: Right CVA tenderness NEURO: Alert and oriented x 3. No acute neurological deficits. Speech is normal and follows commands. SKIN: Dry and warm Triage Information Reviewed: Yes Vital Signs On Initial Exam: Initial Vitals Temp Pulse Resp BP Pulse Ox 97.5 F 81 18 159/109 95 12/02/18 19:57 12/02/18 19:57 12/02/18 19:57 12/02/18 19:57 12/02/18 19:57 Vital Signs Reviewed: Yes Diagnostics - Vital Signs Vital Signs Temp Pulse Resp BP Pulse Ox 12/02/18 19:57 97.5 F 81 18 159/109 95 - Laboratory Result Diagrams: 12/02/18 23:12 12/02/18 23:12 Lab Statement: Any lab studies that have been ordered have been reviewed, and results considered in the medical decision making process. - CT Abdomen/Pelvis CT CT Interpretation Completed By: Radiologist Summary of CT Findings: Per radiologist,. 1. No CT findings to correlate with patient's symptomatology. Specifically no. obstructing renal or ureteral calculi. 2. Large simple left ovarian cyst and right hydrosalpinx. Recommend follow up. pelvic ultrasound in 6-12 weeks. ED physician has reviewed this imaging report. Re-Evaluation - Re-Evaluation First Eval Re-Evaluation Time: 20:28 Comment: Physician has discussed plan of care with patient. Second Eval Re-Evaluation Time: 23:56 Comment: Physician discussed patient care with patient. Back Pain Course/Dx - Course Course Of Treatment: Patient is a 38 year old F presenting to [facility] with a chief complaint of intermittent right flank and right lower back pain since this morning, 12/02/18, rated at 7/10 in severity, per triage, described as a slow rolling throb. Patient reports that she thought she was constipated so she took a dose of Magnesia yesterday (12/01/18) at 1730 which led to a small bowel movement 30 minutes later. Patient reports that she felt nausea and stomach distension at that time. Patient reports at midnight last night (12/02/18) she took another dose of magnesia after which she had another small bowel movement. Patient reports that when she woke up this morning she had a small bowel movement without taking medications but after which she started feeling pain in her lower back. Patient reports from (3 days ago) to Monday (1 day ago) her stomach felt hard and she felt nausea but reports the pain was no where near as bad as today. Patient reports diaphoresis and a measured temperature in the 70s F. Patient reports she took Zofran a few times due to the nausea. Patient denies front pain, vomiting, dysuria, and fever. Per triage , patient denies hx of kidney stones. Physical exam shows no abnormalities except for patient is morbidly obese and has right CVA tenderness and RLQ tenderness. Bloodwork shows no abnormalities except for WBC 12.6, Absolute Neuts 9.9 H, Absolute Monos 0.9 H, Chloride 98 L, Glucose 111 H, C-Reactive Protein 15.77 H, and Lipase <10 L. Urinalysis shows no abnormalities except for Ur Specific Mccracken 1.009 L, Urine Protein 1+ (30 mg/dl) A, Urine Blood 3+ A, Ur Leukocyte Esterase 2+ A, Urine WBC 3+ (>20/hpf) A, and Urine RBC 3+ (> 10/hpf ) A. Abdomen/Pelvis CT reveals 1. No CT findings to correlate with patient's symptomatology. Specifically no. obstructing renal or ureteral calculi. 2. Large simple left ovarian cyst and right hydrosalpinx. Recommend follow up. pelvic ultrasound in 6-12 weeks. Physician discussed discharge with patient who agrees to discharge. Patient will be discharged. Patient will follow up with Dr. Johnson, obstetrics, within 3 days. - Diagnoses Provider Diagnoses: Ovarian cyst, Urinary tract infection Discharge - Sign-Out/Discharge Documenting (check all that apply): Patient Departure - discharge Patient Received Moderate/Deep Sedation with Procedure: No - Discharge Plan Condition: Stable Disposition: HOME Prescriptions: Levofloxacin TAB* [Levaquin TAB*] 750 mg PO DAILY #7 tab Patient Education Materials: Ovarian Cyst (ED) Referrals: Shannon Johnson MD [Medical Doctor] - 3 Days Additional Instructions: Follow up with Dr. Johnson, obstetrics, within 3 days. PLEASE RETURN TO THE ED IMMEDIATELY FOR WORSENING OR CONCERNING SYMPTOMS. - Attestation Statements Document Initiated by Scribe: Yes Documenting Scribe: Esperanza Berry Provider For Whom Scribe is Documenting (Include Credential): Clement Goodrich MD Scribe Attestation: Esperanza Cadena, scribed for Clement Goodrich MD on 12/03/18 at 0439. Status of Scribe Document: Ready
[2018-12-02 22:20] LABS: Urine Appearance Cloudy; Urine Bacteria Absent (Absent); Urine Bilirubin Negative (Negative); Urine Blood 3+ (Negative); Urine Color Yellow; Urine Glucose Negative (Negative); Urine Ketones Negative (Negative); Urine Nitrite Negative (Negative); Urine Protein 1+(30 mg/dL) (Negative); Urine Red Blood Cell 3+(>10/hpf) (Absent); Urine Specific Gravity 1.009 (1.010-1.030); Urine Urobilinogen Negative (Negative); Urine White Blood Cell 3+(>20/hpf) (Absent)
[2018-12-02 23:34] LABS: ABS Basophils 0.1 10^3/ul (0-0.2); ABS Eosinophils 0.1 10^3/ul (0-0.6); ABS Lymphocytes 1.7 10^3/ul (1.0-4.8); ABS Monocytes 0.9 10^3/ul (0-0.8); ABS Neutrophils 9.9 10^3/ul (1.5-7.7); Eosinophil % 0.8 %; Hematocrit 40 % (35-47); Hemoglobin 13.1 g/dL (12.0-16.0); Lymphocyte % 13.3 %; Mean Corpuscular HGB Conc 33 g/dL (31-36); Mean Corpuscular Hemoglobin 29 pg (27-31); Mean Corpuscular Volume 87 fL (80-97); Mean Platelet Volume 7.8 fL (7.4-10.4); Platelet Count 303 10^3/uL (150-450); Red Blood Count 4.54 10^6 /uL (3.70-4.87); Red Cell Distribution Width 14 % (10-15); White Blood Count 12.6 10^3/uL (3.5-10.8)
[2018-12-02 23:46] LABS: ALT 17 U/L (7-52); AST 15 U/L (13-39); Albumin 4.2 g/dL (3.2-5.2); Albumin/Globulin Ratio 1.3 (1-3); Alkaline Phosphatase 67 U/L (34-104); Anion Gap 7 mmol/L (2-11); BUN/Creatinine Ratio 13.5 (8-20); Blood Urea Nitrogen 12 mg/dL (6-24); C Reactive Protein 15.77 mg/L (<8.01); CO2 Carbon Dioxide 30 mmol/L (22-32); Calcium 9.1 mg/dL (8.6-10.3); Chloride 98 mmol/L (101-111); EGFR Non-African American 70.2 (>60); Globulin 3.3 g/dL (2-4); Glucose 111 mg/dL (70-100); Magnesium 2.1 mg/dL (1.9-2.7); Potassium 3.8 mmol/L (3.5-5.0); Sodium 135 mmol/L (135-145); Total Protein 7.5 g/dL (6.4-8.9)
[2018-12-02 23:53] LABS: HCG Pregnancy 0.74 mIU/mL
[2018-12-03] MEDS ORDERED: Levofloxacin TAB* 250 MG PO ONE (00:01)
[2018-12-03 00:54] VITALS: BP 116/75
== END 2018-12-03 00:52 | disposition home or self-care (01) ==
LOC: ED 19:46
DX: N83.202 Unspecified ovarian cyst, left side (principal); N39.0 Urinary tract infection, site not specified; N70.11 Chronic salpingitis
CPT/HCPCS: 36415; 74176; 80053; 81003; 81015; 83690; 83735; 84702; 85025; 86140; 87077; 87086; 87186; 96361; 96374; 96375; 99282; A9270-GY

== ENCOUNTER 2018-12-10 08:04 | Inpatient (IN) | payer OTHER ==
--- NOTE | 2018-12-10 08:38 | ED ---
Complex/Multi-Sys Presentation - HPI Summary HPI Summary: Patient is a 38 y/o F presenting to ED via EMS with complaints of upper abdominal pain, N/V, decreased appetite and cold sweats. She reports that the pain has been constant since onset two days ago. Dysuria, hematuria, fever and diarrhea are denied, she states that her bowel movements have been normal. Patient additionally notes that she has been having difficulty staying hydrated. On triage, pain is rated 8/10, resting and lying down are noted to alleviate Sx, movement and palpation are noted to aggravate Sx. Patient was recently diagnosed with UTI and is being treated with antibiotics. She notes that she was supposed to finish her antibiotics yesterday but did not do so as she did not think she would be able to keep them down. PSHx of appendectomy for ruptured appendix, she claims that she had three associated surgeries for this condition, including a bowel resection. Gallbladder is still present. Patient is on suboxone and refuses opiates. Patient does not report erythema of eyes, sore throat, chest pain, SOB, cough, myalgia, edema, rash, or dizziness. Home medications and allergies are reviewed. - History Of Current Complaint Hx Obtained From: Patient Onset/Duration: Lasting Days - two, Still Present Timing: Constant, Days Severity Currently: Severe Location: Pain At: - upper abdomen Aggravating Factor(s): movement and palpation Alleviating Factor(s): resting and lying down Associated Signs And Symptoms: Positive: Nausea, Vomiting, Abdominal Pain, Diaphoresis - cold sweats, Other - does not report erythema of eyes, sore throat , myalgia, rash, hematuria; endoreses decreased appetite and difficulty staying hydrated.. Negative: Dizziness, SOB, Cough, Chest Pain, Edema, Diarrhea, Dysuria, Fever - Allergies/Home Medications Allergies/Adverse Reactions: Allergies Allergy/AdvReac Type Severity Reaction Status Date / Time No Known Allergies Allergy Verified 10/11/18 18:13 Home Medications: Home Medications BuPROPion XL* [Bupropion XL*] 300 mg PO DAILY 12/10/18 [History Confirmed ] Buprenorp/Nalox 8-2 MG SL TAB [Suboxone 8-2 mg SL TAB*] 1 tab.sl SL BID [History Confirmed 12/10/18] Chlorthalidone TAB* [Hygroton TAB*] 25 mg PO DAILY 12/10/18 [History Confirmed 12/10/18] Gabapentin CAP(*) [Neurontin 400 mg CAP(*)] 800 mg PO TID 12/10/18 [History Confirmed 12/10/18] Ibuprofen TAB* [Motrin TAB* 600 MG] 600 mg PO Q8H PRN 12/10/18 [History Confirmed 12/10/18] Lisinopril TAB* [Prinivil TAB 5 MG*] 5 mg PO DAILY 12/10/18 [History Confirmed 12/10/18] LoraTADine TAB(NF) [Claritin 10 MG TAB(NF)] 10 mg PO DAILY 12/10/18 [History Confirmed 12/10/18] Mirtazapine TAB* [Remeron TAB*] 7.5 mg PO BEDTIME 12/10/18 [History Confirmed ] Montelukast Sodium TAB* [Singulair 10 MG TAB*] 10 mg PO DAILY 12/10/18 [History Confirmed 12/10/18] Montelukast Sodium TAB* [Singulair 10 MG TAB*] 10 mg PO DAILY 12/10/18 [History Confirmed 12/10/18] Sertraline* [Zoloft*] 75 mg PO DAILY 12/10/18 [History Confirmed 12/10/18] tiZANidine TAB* [Zanaflex TAB*] 4 mg PO TID 12/10/18 [History Confirmed 12/10/18 ] PMH/Surg Hx/FS Hx/Imm Hx Endocrine/Hematology History: Denies: Hx Anticoagulant Therapy, Hx Diabetes, Hx Thyroid Disease Cardiovascular History: Denies: Hx Hypertension, Hx Pacemaker/ICD Respiratory History: Reports: Hx Asthma - W/DAILY INHALER Denies: Hx Chronic Obstructive Pulmonary Disease (COPD) GI History: Denies: Hx Ulcer History: Denies: Hx Renal Disease Neurological History: Denies: Hx Dementia, Hx Seizures Psychiatric History: Denies: Hx Substance Abuse - Cancer History Hx Chemotherapy: No Hx Radiation Therapy: No - Surgical History Surgery Procedure, Year, and Place: 2004 appendectomy with major complications: infection and subsequent bowel resection. - Immunization History Date of Tetanus Vaccine: 2004 Date of Influenza Vaccine: no Infectious Disease History: Reports: Hx Clostridium Difficile Denies: Hx Hepatitis, Hx Human Immunodeficiency Virus (HIV), Hx of Known/ Suspected MRSA, Hx Shingles, Hx Tuberculosis, Hx Known/Suspected VRE, Hx Known/ Suspected VRSA, History Other Infectious Disease - Family History Known Family History: Positive: Hypertension - Social History Alcohol Use: Rare Hx Substance Use: Yes Substance Use Type: Reports: Marijuana Substance Use Comment - Amount & Last Used: former IV user Hx Tobacco Use: No Smoking Status (MU): Never Smoked Tobacco Have You Smoked in the Last Year: No Review of Systems Constitutional: Other - positive - difficulty staying hydrated Positive: Skin Diaphoresis - cold sweats . Negative: Fever Negative: Erythema Negative: Sore Throat Negative: Chest Pain Negative: Shortness Of Breath, Cough Gastrointestinal: Other - positive - decreased appetite Positive: Abdominal Pain, Vomiting, Nausea. Negative: Diarrhea Negative: dysuria, hematuria Negative: Myalgia, Edema Negative: Rash Neurological: Other - negative - dizziness All Other Systems Reviewed And Are Negative: Yes Physical Exam - Summary Physical Exam Summary: Constitutional: Well-developed, Morbidly obese, Alert. (-) Distressed Skin: Warm, Dry HENT: Normocephalic; Atraumatic Eyes: Conjunctiva normal Neck: Musculoskeletal ROM normal neck. (-) JVD, (-) Stridor, (-) Tracheal deviation Cardio: Rhythm regular, rate normal, Heart sounds normal; Intact distal pulses; The pedal pulses are 2+ and symmetric. Radial pulses are 2+ and symmetric. (-) Murmur Pulmonary/Chest wall: Effort normal. (-) Respiratory distress, (-) Wheezes, (-) Rales Abd: Soft, Epigastric and RUQ tenderness noted, no CVA tenderness (-) Distension , (-) Guarding, (-) Rebound Musculoskeletal: (-) Edema Lymph: (-) Cervical adenopathy Neuro: Alert, Oriented x3 Psych: Mood and affect Normal Triage Information Reviewed: Yes Vital Signs On Initial Exam: Initial Vitals Pulse Pulse Ox 76 95 12/10/18 08:16 12/10/18 08:16 Vital Signs Reviewed: Yes Diagnostics - Laboratory Result Diagrams: 12/11/18 09:10 12/12/18 06:57 Lab Statement: Any lab studies that have been ordered have been reviewed, and results considered in the medical decision making process. - CT ABD/PEL CT CT Interpretation Completed By: Radiologist Summary of CT Findings: CT ABD/PEL IMPRESSION: 1. THERE IS DISTENTION OF THE SMALL BOWEL WITHOUT DILATATION WITH TRANSITION TO. DECOMPRESSED SMALL BOWEL WITHIN THE RIGHT HEMIABDOMEN. THE DIFFERENTIAL INCLUDES. PARTIAL/INTERMITTENT VERSUS EARLY OBSTRUCTION. RECOMMEND ATTENTION ON FOLLOW-UP IMAGING. 2. AGAIN NOTED IS A LARGE LEFT OVARIAN CYST WITH RIGHT HYDROSALPINX. 3. BILIARY DILATATION WITH A 2.5 CM DIVERTICULUM OF THE SECOND STAGE OF THE DUODENUM. THIS REPORT WAS REVIEWED BY DR. MONTGOMERY. - Ultrasound GALLBLADDER US Ultrasound Interpretation Completed By: Radiologist Summary of Ultrasound Findings: GALLBLADDER US IMPRESSION: 1. THE COMMON BILE DUCT IS DILATED UP TO 1.2 CM. 2. THE GALLBLADDER IS GROSSLY UNREMARKABLE WITH NO SHADOWING GALLSTONE. THIS REPORT WAS REVIEWED BY DR. MONTGOMERY. TRANSVAGINAL US Ultrasound Interpretation Completed By: Radiologist Summary of Ultrasound Findings: US TRANSVAGINAL IMPRESSION: 1. In the left adnexa there is a cystic structure measuring 6.3 x 7.8 x 5.4 cm that. potentially corresponds to the 11 cm cyst seen on the December 02, 2018 CT examination. Please. correlate to stage of menstruation. 2. There is a mixed echogenicity structure in the right adnexa that is either a complex. multicystic cyst or a dilated right fallopian tube. Please correlate to signs or symptoms. of hydrosalpinx. THIS REPORT WAS REVIEWED BY DR. MONTGOMERY. Re-Evaluation - Re-Evaluation First Eval Re-Evaluation Time: 12:50 Comment: Results of labs and tests were discussed. Patient is agreeable with admission. Complex Multi-Symp Course/Dx Course Of Treatment: Patient is a 38 y/o F presenting to ED via EMS with complaints of upper abdominal pain, N/V, decreased appetite and cold sweats. She reports that the pain has been constant since onset two days ago. Dysuria, hematuria, fever and diarrhea are denied, she states that her bowel movements have been normal. Patient was recently diagnosed with UTI and is being treated with antibiotics. She notes that she was supposed to finish her antibiotics yesterday but did not do so as she did not think she would be able to keep them down. PSHx of appendectomy for ruptured appendix, she claims that she had three associated surgeries for this condition, including a bowel resection. Gallbladder is still present. On physical exam, patient is noted to be morbidly obese, RUQ and epigastric tenderness is noted, no CVA tenderness. Labs showed WBC 16.4, RBC 4.99, MPV 7.3, absolute neuts 14, absolute monos 1, sodium 133, chloride 93, glucose 112, CRP 44.43, AST 13, ALT 10, alk phos 73, lipase 15, beta HCG < 0.60. GALLBLADDER US IMPRESSION: 1. THE COMMON BILE DUCT IS DILATED UP TO 1.2 CM. 2. THE GALLBLADDER IS GROSSLY UNREMARKABLE WITH NO SHADOWING GALLSTONE. US TRANSVAGINAL IMPRESSION: 1. In the left adnexa there is a cystic structure measuring 6.3 x 7.8 x 5.4 cm that. potentially corresponds to the 11 cm cyst seen on the December 02, 2018 CT examination. Please. correlate to stage of menstruation. 2. There is a mixed echogenicity structure in the right adnexa that is either a complex. multicystic cyst or a dilated right fallopian tube. Please correlate to signs or symptoms. of hydrosalpinx. CT ABD/PEL IMPRESSION: 1. THERE IS DISTENTION OF THE SMALL BOWEL WITHOUT DILATATION WITH TRANSITION TO. DECOMPRESSED SMALL BOWEL WITHIN THE RIGHT HEMIABDOMEN. THE DIFFERENTIAL INCLUDES. PARTIAL/INTERMITTENT VERSUS EARLY OBSTRUCTION. RECOMMEND ATTENTION ON FOLLOW-UP IMAGING. 2. AGAIN NOTED IS A LARGE LEFT OVARIAN CYST WITH RIGHT HYDROSALPINX. 3. BILIARY DILATATION WITH A 2.5 CM DIVERTICULUM OF THE SECOND STAGE OF THE DUODENUM. During ED course, patient received Zofran 8 mg IV, lidocaine 15 ml PO, Maalox 30 ml PO, and fluids. UA is still pending. Patient has taken course of Levaquin to which her E.coli was sensitive. Patient's case was discussed with Dr. Tarango, Dr. Tarango accepts the patient for admission. - Diagnoses Provider Diagnoses: Partial small bowel obstruction, Elevated white blood cell count - Physician Notifications Discussed Care Of Patient With: Dara Tarango Time Discussed With Above Provider: 12:53 Instructed by Provider To: Other - Patient's case was discussed with Dr. Tarango , Dr. Tarango accepts the patient for admission. Discharge - Sign-Out/Discharge Documenting (check all that apply): Patient Departure - admit Patient Received Moderate/Deep Sedation with Procedure: No - Discharge Plan Condition: Stable Disposition: ADMITTED TO [facility] - Billing Disposition and Condition Condition: STABLE Disposition: Admitted to [facility] - Attestation Statements Document Initiated by Scribe: Yes Documenting Scribe: AMANDA HERNÁNDEZ Provider For Whom Nikolasibe is Documenting (Include Credential): CAROL MONTGOMERY MD Scribe Attestation: I, AMANDA HERNÁNDEZ, scribed for CRAOL MONTGOMERY MD on 12/17/18 at 0826. Scribe Documentation Reviewed: Yes Provider Attestation: The documentation as recorded by the nikolasibAMANDA briggs accurately reflects the service I personally performed and the decisions made by me, CAROL MONTGOMERY MD Status of Scribe Document: Viewed
[2018-12-10] MEDS ORDERED: Ondansetron INJ* 2 MG/ML VIAL IV ONE ×2 (09:48→15:52)
[2018-12-10 10:57] LABS: ABS Basophils 0.1 10^3/ul (0-0.2); ABS Eosinophils 0.1 10^3/ul (0-0.6); ABS Lymphocytes 1.2 10^3/ul (1.0-4.8); Eosinophil % 0.8 %; Hematocrit 43 % (35-47); Hemoglobin 14.7 g/dL (12.0-16.0); Lymphocyte % 7.5 %; Mean Corpuscular HGB Conc 34 g/dL (31-36); Mean Corpuscular Hemoglobin 29 pg (27-31); Mean Corpuscular Volume 86 fL (80-97); Mean Platelet Volume 7.3 fL (7.4-10.4); Platelet Count 363 10^3/uL (150-450); Red Blood Count 4.99 10^6 /uL (3.70-4.87); Red Cell Distribution Width 13 % (10-15); White Blood Count 16.4 10^3/uL (3.5-10.8)
[2018-12-10 11:26] LABS: Albumin 4.1 g/dL (3.2-5.2); Albumin/Globulin Ratio 1.2 (1-3); BUN/Creatinine Ratio 18.7 (8-20); C Reactive Protein 44.43 mg/L (<8.01); Calcium 9.2 mg/dL (8.6-10.3); EGFR African American 82.8 (>60); EGFR Non-African American 68.5 (>60); Globulin 3.3 g/dL (2-4); Potassium 3.5 mmol/L (3.5-5.0); Total Bilirubin 0.6 mg/dL (0.2-1.0); Total Protein 7.4 g/dL (6.4-8.9)
[2018-12-10] MEDS ORDERED: Iohexol 300* (CONTRAST) 10 ML SDV IV ONE (11:28)
[2018-12-10] MEDS ORDERED: NS 0.9% 1000 ML** 1,000 ML IV ONE ×2 (12:33→12:43)
[2018-12-10] MEDS ORDERED: Lidocaine 2% VISCOUS* 15 ML UDC PO ONE (13:03)
[2018-12-10] MEDS ORDERED: Al Hydrox/Mg Hydrox/Simet LIQ* 30 ML UDC PO ONE (13:03)
[2018-12-10] MEDS ORDERED: Buprenorp/Nalox 8-2 MG SL TAB PO ONE (14:29)
[2018-12-10] MEDS ORDERED: Piperacillin/Tazobac ADVAN(*) 3.375 GM in NS 0.9% 100 ML* 100 ML IVPB ONE (15:50)
[2018-12-10] MEDS ORDERED: Acetaminophen TAB* 325 MG PO PRN (15:52)
[2018-12-10] MEDS ORDERED: Ibuprofen TAB* 600 MG PO PRN (15:54)
[2018-12-10] MEDS ORDERED: Zosyn per Pharmacy* NOTE FOLLOW UP SCH (16:00)
[2018-12-10] MEDS ORDERED: Lactated Ringers 1000 ML Bag* 1,000 ML IV SCH (16:00)
[2018-12-10] MEDS ORDERED: Albuterol 2.5 MG/3 ML NEB.SOL* (0.083%) INH PRN (16:09)
[2018-12-10 16:24] LABS: Urine Appearance Clear; Urine Bilirubin Negative (Negative); Urine Blood Negative (Negative); Urine Color Yellow; Urine Glucose Negative (Negative); Urine Ketones Negative (Negative); Urine Nitrite Negative (Negative); Urine Protein Negative (Negative); Urine Specific Gravity 1.053 (1.010-1.030); Urine Urobilinogen Negative (Negative)
--- NOTE | 2018-12-10 18:05 | HP ---
CC: Dr. Angeles Thomas * ADMISSION HISTORY AND PHYSICAL: DATE OF ADMISSION: 12/10/18 PRIMARY CARE PROVIDER: Dr. Angeles Thomas. MY ATTENDING WHILE IN THE HOSPITAL: Dr. Dara Tarango.* (DICTATED BY JANA LEON) CHIEF COMPLAINT: Abdominal pain since Monday. HISTORY OF PRESENT ILLNESS: Ms. Venegas is a 38-year-old female with past medical history significant for morbid obesity, history of heroin abuse on buprenorphine therapy and obstructive sleep apnea, who presents to the emergency department on Monday. She had relatively sudden onset abdominal pain in her central abdomen with associated nausea and vomiting. She has been unable to tolerate any medications except for her sublingual naloxone or anything except sips of water. Since then, the patient has had a bowel movement yesterday that was nonbloody, but has not passed any gas since then. The patient describes the abdominal pain as sharp, severe and worse with movement and palpitation, radiating down from her abdomen and not up into her right upper quadrant. The patient has a history of appendectomy complicated by 3 abscesses and needing a bowel resection in 2004. The patient was recently diagnosed with a urinary tract infection and took 6 days of levofloxacin for it and has no more symptoms associated with that. The patient has had subjective fevers and chills, but no recorded fevers. The patient denies chest pain, shortness of breath. The patient had a relatively nonfatty meal of scallops and risotto before this pain began. The patient has no sick contacts, no recent changes in medications. The patient came into the emergency department as the pain was getting worse. The patient in the emergency department was found to have an elevated white blood cell count, elevated CRP and chest, abdomen, and pelvis CT consistent with early small-bowel obstruction with a transition point in the right upper quadrant. Due to concern for bowel obstruction, we were asked to evaluate the patient for admission to the hospital. PAST MEDICAL HISTORY: Asthma, GERD, obstructive sleep apnea, ADD, hypertension , history of heroin abuse. PAST SURGICAL HISTORY: Appendectomy in 2004, bowel resection also in 2004. MEDICATIONS: 1. Sertraline 25 mg p.o. daily. 2. Chlorthalidone 25 mg p.o. daily. 3. Bupropion XL 300 mg p.o. daily. 4. Lisinopril 5 mg p.o. daily. 5. Ibuprofen 600 mg p.o. t.i.d. 6. Mirtazapine 15 mg p.o. daily. 7. Tizanidine 4 mg p.o. t.i.d. 8. Ventolin inhaler 1 puff inhalation q.4 to 6 hours. 9. Zofran ODT 4 mg p.o. q.8 hours as needed. 10. Advair 500/50 one inhalation b.i.d. 11. Gabapentin 800 mg p.o. t.i.d. 12. Claritin 10 mg p.o. daily. 13. Singulair 10 mg p.o. daily. FAMILY HISTORY: The patient's mother and father both have high blood pressure. The patient has a sister who is healthy. The patient does not know her grandparents' history. SOCIAL HISTORY: The patient does not smoke, never has; does not abuse alcohol and has not used heroin recently. The patient is unemployed, is not and has no children. REVIEW OF SYSTEMS: A 14-point review of systems was reviewed and is negative as above in the HPI except for the patient has been gaining moderate amount of weight recently. PHYSICAL EXAMINATION GENERAL: The patient is a 38-year-old female who appears stated age and sitting in the bed, in obvious distress from pain. VITAL SIGNS: Temperature 96.6, pulse rate 82, respiratory rate 20, oxygen saturation 95% on room air, blood pressure 143/94. HEENT: Head: Normocephalic, atraumatic. Sclerae anicteric. No conjunctival injection. Nasal mucosa moist. Oral mucosa moist. No pharyngeal erythema, discharge, or exudate. NECK: Supple, nontender. No lymphadenopathy. No carotid bruits auscultated. No JVD. RESPIRATORY: Clear to auscultation bilaterally. No wheezes, rales, or rhonchi. Good air exchange bilaterally. CARDIAC: Regular rate and rhythm. No clicks, murmurs, gallops, or rubs. Pulses are 2+ in the bilateral dorsalis pedis, posterior tibialis and radial areas. No bilateral lower extremity edema or calf tenderness noted. ABDOMEN: Soft, tender to palpation in the middle of the abdomen without rebound nor voluntary or involuntary guarding. No referred rebound. Negative Phipps's sign. Bowel sounds absent. Exam limited by body habitus. GENITOURINARY: No suprapubic or CVA tenderness. NEURO: Cranial nerves II through XII intact. No focal deficits. Alert and oriented x3. PSYCHIATRIC: Pleasant and cooperative. SKIN: Clean, dry, and intact. No rash. DIAGNOSTIC STUDIES/LAB DATA: White blood cell count 16.4, hemoglobin 14.7, platelet count 363. Sodium 136, potassium 3.5, chloride 94, carbon dioxide 29, anion gap 10, BUN 17, creatinine 0.91, glucose 112, lactic acid 0.9, calcium 9.2. Bilirubin 0.6, AST 13, ALT 20, alkaline phosphatase 73, CRP 44.43. Protein 7.4, albumin 4.1, globulin 3.3, lipase is 15. Beta hCG less than 0.6. Studies: Abdomen and pelvis CT read as: There is a distention of the small bowel without dilatation with a transition to decompress small bowel within the right hemiabdomen. Differential includes partial/intermittent versus early obstruction. Again, there was a large ovarian cyst with right hydrosalpinx, biliary dilatation with a 6.25 cm diverticulum in the second stage of duodenum. Gallbladder ultrasound read as common bile duct dilated up to 1.2 cm. Gallbladder is grossly unremarkable with no shadowing gallstone. Transvaginal ultrasound read as: Left adnexa, there is a cystic structure measuring 6.3 x 7.8 x 5.4 cm. There is potentially corresponds to a 11-cm cyst seen on 12/02/[address] examination, please correlate with stage of menstruation. There is a mixed consistency structure of the right adnexa. There is either a complex multicystic cyst or dilated right fallopian tube. Please correlate with signs and symptoms of hydrosalpinx. ASSESSMENT AND PLAN: Impression: Ms. Venegas is a 38-year-old female with past medical history significant for asthma, obstructive sleep apnea, hypertension and history of heroin abuse, who presents to the emergency department with 2 days of abdominal pain, nausea, and vomiting. The patient was found to have a partial small bowel obstruction and admitted to the hospital for supportive care and surgical consult. 1. Partial small bowel obstruction. The patient has signs and symptoms consistent with bowel obstruction. She is not currently passing any flatus. The patient has had a bowel movement a day ago, which was nonbloody. The patient is only able to tolerate sips of water by mouth. The patient's abdominal exam does not show any signs of perforation or peritonitis. The patient will be monitored with serial abdominal exams. The patient will be seen in consultation by Dr. Morales of Surgery. The patient has elevated white blood cell count and subjective fevers and chills. The patient will be started on Zosyn as a precautionary measure. The patient's common bile duct is dilated , though she has no LFT abnormalities nor any signs of gallbladder distention on ultrasound. No further imaging will be ordered at this time, though LFTs will be repeated in the morning for signs and changes consistent with choledocholithiasis will be ordered. The patient will be n.p.o. The patient is requesting pain control only with buprenorphine. The patient will be initially started on an increased dose of her sublingual buprenorphine from home as needed and Butrans patches are available if she would need additional pain control. If the patient's pain is uncontrollable on these methods, a discussion then will be made for use of intravenous opioids, though the patient is currently opposed to this. 2. Asthma. The patient will have p.r.n. nebulizers. The patient is not currently in exacerbation. 3. Obstructive sleep apnea. The patient has never had a sleep study and does not use CPAP at home. 4. Hypertension. The patient will be given fluids. We will hold the patient' s chlorthalidone and lisinopril at this time. Continue the patient's Advair and Singulair. 5. History of heroin abuse. Continue buprenorphine as above for acute pain control. 6. DVT prophylaxis. The patient is low risk, SCDs only. 7. Anxiety/depression. Continue the patient's sertraline and bupropion. 8. FEN. The patient will be n.p.o. The patient will have lactated Ringer's 100 mL an hour. 9. Disposition. The patient admitted inpatient to the hospital. TIME SPENT: Approximately 60 minutes was spent on the admission of this patient , 30 of which were spent [id number] with the patient obtaining history and physical and discussing treatment plan. This plan has been discussed with my attending, Dr. Dara Tarango, and she is in agreement. JANA LEON [id number]/[facility] #: [id number] RONI
[2018-12-10] MEDS: Mometasone/Formoter 200/5 MDI INH SCH (19:13)
[2018-12-10] MEDS: NS 0.9% 1000 ML** 1,000 ML IV SCH (20:24)
[2018-12-10] MEDS: ZOSYN 3.375 GM Q8H per EXTENDED INFUSION IVPB SCH ×2 (20:25)
[2018-12-10] MEDS: PROCHLORPERAZINE INJ 5 MG/ML 2 ML VIAL IV PRN (20:41)
[2018-12-10] MEDS: Gabapentin CAP(*) 400 MG PO SCH (20:46)
[2018-12-10] MEDS: tiZANidine TAB* 2 MG PO SCH (20:46)
[2018-12-10] MEDS: BuPROPion XL* 300 MG TAB.XL PO SCH (20:47)
[2018-12-10] MEDS: Sertraline* 50 MG TAB PO SCH (20:48)
[2018-12-10] MEDS: Buprenorp/Nalox 8-2 MG FILM SL FILM SCH (20:49)
[2018-12-10] MEDS: Ondansetron INJ* 2 MG/ML VIAL IV PRN (22:05)
[2018-12-10] MEDS: Mirtazapine TAB* 15 MG PO SCH (22:10)
--- NOTE | 2018-12-11 01:22 | CONS ---
CONSULTATION REPORT: DATE OF CONSULT: 12/11/18 CHIEF COMPLAINT: Abdominal pain. HISTORY OF PRESENT ILLNESS: This is a pleasant 38-year-old female began having some abdominal discomfort on Monday, 2 days ago. She had some associated nausea and vomiting. She had a bowel movement on Monday. She has not had any recent flatus. She has not had pain like this prior to this since an operation for appendicitis in 2004. No fevers or chills. No blood per rectum. No hematemesis. Workup in the emergency room included laboratory studies which showed an elevated white blood cell count 16,000. CT scan of the abdomen and pelvis was performed which is interpreted as possible small bowel obstruction, partial. Gas and stool are noted in the colon. Question of a transition zone was noted in the right side of the abdomen. PAST MEDICAL HISTORY: Asthma, reflux, obstructive sleep apnea, ADD, hypertension, history of heroin abuse. PAST SURGICAL HISTORY: Appendectomy in 2004, which also involved a bowel resection by report. MEDICATIONS: Include: 1. Sertraline. 2. Chlorthalidone. 3. Bupropion. 4. Lisinopril. 5. Ibuprofen. 6. Mirtazapine. 7. Tizanidine. 8. Ventolin inhaler. 9. Gabapentin. 10. Singulair. 11. Claritin. 12. Advil. 13. Zofran. 14. She was placed on broad spectrum antibiotics, Zosyn, by the admitting service. SOCIAL HISTORY: She does not smoke. She denies using heroin recently. She is unemployed, no children, is not . FAMILY HISTORY: No history of colorectal or breast cancer according to the patient. REVIEW OF SYSTEMS: General: Denies weight loss, change in appetite. HEENT: No changes in vision, hearing, swallowing. No sore throat. Cardiac: No chest pain. Pulmonary: No cough. GI: No blood per rectum. : No hematuria. Skin : Denies rash. Neuro: No headache or dizziness. Musculoskeletal: No extremity weakness. Psych: No anxiety or depression. These were all prior to her recent admission and onset of abdominal pain. PHYSICAL EXAM: General: This pleasant 38-year-old is resting in bed, appears comfortable. Vital signs are stable. HEENT: Sclerae anicteric. Oral mucosa is pink and moist. Neck is supple. Heart is regular. Lungs are clear anteriorly. Abdomen is obese, soft and nondistended. I do not appreciate signs of peritonitis, guarding or rebound. She is tender mildly in general. Nondistended abdomen. Extremities: No clubbing, cyanosis or edema. Skin: No rash, petechiae, or jaundice. Neuro exam was grossly intact. No focal, motor or sensory deficits. IMPRESSION: Bowel obstruction secondary to adhesions is likely. Considered possibly partial on the CT scan. She is currently stable. Our plan will be for reevaluation in the morning with laboratory studies, serial abdominal examinations. She may require surgical intervention, but we will be given a chance at conservative treatment at this point. She is in agreement with the treatment plan and all questions were answered. [id number]/[facility] #: [id number] MTDD
[2018-12-11] MEDS: PROCHLORPERAZINE INJ 5 MG/ML 2 ML VIAL IV PRN (02:21)
[2018-12-11] MEDS ORDERED: Buprenorp/Nalox 8-2 MG FILM SL FILM ONE (03:19)
[2018-12-11] MEDS: Ondansetron INJ* 2 MG/ML VIAL IV PRN ×3 (03:31→15:45)
[2018-12-11] MEDS: ZOSYN 3.375 GM Q8H per EXTENDED INFUSION IVPB SCH ×4 (03:31→11:47)
[2018-12-11] MEDS: NS 0.9% 1000 ML** 1,000 ML IV SCH ×2 (06:20→17:55)
[2018-12-11] MEDS: Mometasone/Formoter 200/5 MDI INH SCH ×2 (07:58→19:26)
--- NOTE | 2018-12-11 08:34 | PN ---
Progress Note - Progress Note Date of Service: 12/11/18 SOAP: Subjective: [] continued pain, no flatus or bm Objective: [ Temp Pulse Resp BP Pulse Ox 97.8 F 68 14 139/81 98 12/11/18 07:47 12/11/18 08:00 12/11/18 08:00 12/11/18 07:47 12/11/18 08:00 Intake & Output 12/09/18 12/10/18 12/11/18 12/12/18 06:59 06:59 06:59 06:59 Intake Total 525 980 Output Total 1050 Balance -525 980 Weight 365 lb 1.6 oz Intake: IV Fluids 105 980 ABX - ZOSYN 105 NS (0.9%) 980 Oral 420 Output: Urine 1050 Other: # Bowel Movements 0 abdomen difficult to examine due to size, but remains tender, no obvious Assessment: []persistent sbo and intermittent pain through the night, pt refused lab work this am Plan: []discussed with patient surgery vs continued observation with risks of each, surgery risks including but not limited to bleeding, infection, injury to bowel/ other intra abdominal contents, persistent sbo explained, she, similar to last night, is interested in surgery, all questions answered.
[2018-12-11] MEDS ORDERED: Sertraline* 50 MG TAB PO SCH ×2 (09:00→22:15)
[2018-12-11] MEDS ORDERED: BuPROPion XL* 300 MG TAB.XL PO SCH ×2 (09:00→22:15)
[2018-12-11] MEDS ORDERED: Lisinopril TAB* 5 MG PO SCH (09:00)
[2018-12-11] MEDS ORDERED: Chlorthalidone TAB* 50 MG PO SCH (09:00)
--- NOTE | 2018-12-11 09:02 | PN ---
Hospitalist Progress Note Date of Service: 12/11/18 Attendign Assessment and Plan HD #2 on 12/11 38 F PMH OUD on MAT in recovery, asthma, GERD, HTN presents with SBO #SBO #OUT on MAT #Ashtma #GERD #HTN: #Depression/anxeiity #DVT #Code
[2018-12-11] MEDS: Buprenorp/Nalox 8-2 MG FILM SL FILM SCH ×4 (09:40→23:30)
[2018-12-11] MEDS: tiZANidine TAB* 2 MG PO SCH ×3 (09:41→22:28)
[2018-12-11] MEDS: Montelukast Sodium TAB* 10 MG PO SCH (09:41)
[2018-12-11] MEDS: Sertraline* 50 MG TAB PO SCH (09:41)
[2018-12-11] MEDS: BuPROPion XL* 300 MG TAB.XL PO SCH (09:41)
[2018-12-11] MEDS: Gabapentin CAP(*) 400 MG PO SCH ×3 (09:41→22:26)
[2018-12-11 10:00] LABS: ABS Eosinophils 0.1 10^3/ul (0-0.6); ABS Lymphocytes 1.3 10^3/ul (1.0-4.8); ABS Monocytes 0.9 10^3/ul (0-0.8); ABS Neutrophils 9.3 10^3/ul (1.5-7.7); Eosinophil % 0.6 %; Hematocrit 39 % (35-47); Hemoglobin 13.2 g/dL (12.0-16.0); Lymphocyte % 11.2 %; Mean Corpuscular HGB Conc 34 g/dL (31-36); Mean Corpuscular Hemoglobin 29 pg (27-31); Mean Corpuscular Volume 86 fL (80-97); Mean Platelet Volume 7.7 fL (7.4-10.4); Nucleated Red Blood Cells % 0.1; Platelet Count 297 10^3/uL (150-450); Red Blood Count 4.52 10^6 /uL (3.70-4.87); Red Cell Distribution Width 13 % (10-15); White Blood Count 11.6 10^3/uL (3.5-10.8)
[2018-12-11 10:28] LABS: Albumin 3.8 g/dL (3.2-5.2); Albumin/Globulin Ratio 1.4 (1-3); BUN/Creatinine Ratio 15.7 (8-20); C Reactive Protein 48.62 mg/L (<8.01); Calcium 8.5 mg/dL (8.6-10.3); EGFR Non-African American 70.2 (>60); Globulin 2.7 g/dL (2-4); Magnesium 2.1 mg/dL (1.9-2.7); Potassium 3.4 mmol/L (3.5-5.0); Total Protein 6.5 g/dL (6.4-8.9)
[2018-12-11] MEDS ORDERED: Polyethylene Glycol 3350* 17 GM PACKET PO PRN (15:12)
--- NOTE | 2018-12-11 15:32 | PN ---
Subjective Date of Service: 12/11/18 Interval History: HD #2 on 12/11 38 F PMH OUD on MAT in recovery, asthma, GERD, HTN presents with SBO sx., sx resolve priro to surgery passed large BM and now continues ot be monitored VSS Seen today in the aftenroon, has hunger, tolerating clear sips, would like to walk around, no further pain, mild "disomfort" well controlle don Bup Objective Active Medications: Acetaminophen (Tylenol Tab*) 650 mg PO Q6H PRN PRN Reason: FEVER/PAIN Albuterol (Ventolin 2.5 Mg/3 Ml Neb.Carmen*) 2.5 mg INH Q4H PRN PRN Reason: SOB/WHEEZING Buprenorphine/Naloxone (Suboxone 8 Mg-2 Mg Sl Film) 1 each SL FILM TID [facility] Last Admin: 12/11/18 09:40 Dose: 1 each Bupropion HCl (Bupropion Xl*) 300 mg PO DAILY [facility] Last Admin: 12/11/18 09:41 Dose: Not Given Cetirizine HCl (Zyrtec*) 10 mg PO QPM [facility] Gabapentin (Neurontin Cap(*)) 800 mg PO TID [facility] Last Admin: 12/11/18 14:49 Dose: Not Given Sodium Chloride (Ns 0.9% 1000 Ml) 1,000 mls @ 100 mls/hr IV PER RATE [facility] Last Admin: 12/11/18 06:20 Dose: 100 mls/hr Ibuprofen (Motrin Tab*) 600 mg PO Q8H PRN PRN Reason: FEVER/PAIN Mirtazapine (Remeron Tab*) 7.5 mg PO BEDTIME [facility] Last Admin: 12/10/18 22:10 Dose: 7.5 mg Mometasone Furoate/Formoterol Fumar (Dulera 200/5 Mdi*) 2 puff INH BID [facility] Last Admin: 12/11/18 07:58 Dose: 2 puff Montelukast Sodium (Singulair Tab*) 10 mg PO DAILY [facility] Last Admin: 12/11/18 09:41 Dose: Not Given Ondansetron HCl (Zofran Inj*) 4 mg IV Q6H PRN PRN Reason: NAUSEA Last Admin: 12/11/18 09:37 Dose: 4 mg Polyethylene Glycol/Electrolytes (Miralax*) 17 gm PO DAILY PRN PRN Reason: CONSTIPATION Prochlorperazine Edisylate (Compazine Inj*) 5 mg IV Q6H PRN PRN Reason: Nausea- Use After Zofran Last Admin: 12/11/18 02:21 Dose: 5 mg Sertraline HCl (Zoloft*) 75 mg PO DAILY [facility] Last Admin: 12/11/18 09:41 Dose: Not Given Tizanidine HCl (Zanaflex Tab*) 4 mg PO TID [facility] Last Admin: 12/11/18 14:50 Dose: Not Given Vital Signs - 8 hr 12/11/18 12/11/18 12/11/18 07:47 08:00 08:15 Temperature 97.8 F Pulse Rate 71 68 Respiratory 16 14 18 Rate Blood Pressure 139/81 (mmHg) O2 Sat by Pulse 95 98 Oximetry 12/11/18 12/11/18 11:55 15:13 Temperature 98.2 F 98 F Pulse Rate 69 68 Respiratory 18 16 Rate Blood Pressure 121/69 130/70 (mmHg) O2 Sat by Pulse 94 95 Oximetry Oxygen Devices in Use Now: None Appearance: V pleasant woman in NAD Eyes: No Scleral Icterus Ears/Nose/Mouth/Throat: NL Teeth, Lips, Gums, Clear Oropharnyx Neck: NL Appearance and Movements; NL JVP Respiratory: Symmetrical Chest Expansion and Respiratory Effort, Clear to Auscultation Cardiovascular: NL Sounds; No Murmurs; No JVD, RRR Abdominal: NL Sounds; No Tenderness; No Distention, No Hepatosplenomegaly Lymphatic: No Cervical Adenopathy, No Axillary Adenopathy Extremities: No Edema Skin: No Rash or Ulcers Neurological: Alert and Oriented x 3 Result Diagrams: 12/11/18 09:10 12/11/18 09:10 Assess/Plan/Problems-Billing Assessment: 38 F PMH OUD on MAT in recovery, asthma, GERD, HTN presents with SBO sx., sx resolve priro to surgery passed large BM and now continues ot be monitored - Patient Problems (1) Small bowel obstruction, partial Current Visit: Yes Status: Acute Code(s): K56.600 - PARTIAL INTESTINAL OBSTRUCTION, UNSPECIFIED TO CAUSE SNOMED Code(s): 813200107 Comment: - Advance to mechanical ground, start miralax - Continue fluids - Stop abx (2) Opioid use disorder, mild, in early remission, on maintenance therapy, abuse Current Visit: Yes Status: Acute Code(s): F11.11 - OPIOID ABUSE, IN REMISSION SNOMED Code(s): 2718852 Comment: - Home dose 16mg daily, continue 8 TID (3) Depression Current Visit: Yes Status: Acute Code(s): F32.9 - MAJOR DEPRESSIVE DISORDER , SINGLE EPISODE, UNSPECIFIED SNOMED Code(s): 98710628 Comment: - continue home meds (4) Asthma Current Visit: Yes Status: Acute Code(s): J45.909 - UNSPECIFIED ASTHMA, UNCOMPLICATED SNOMED Code(s): 651338967 Comment: - PRN albuterol (5) HTN (hypertension) Current Visit: Yes Status: Acute Code(s): I10 - ESSENTIAL (PRIMARY) HYPERTENSION SNOMED Code(s): 89603610 Comment: - Continue to monitor normotensive (6) DVT prophylaxis Current Visit: Yes Status: Acute Code(s): Z29.9 - ENCOUNTER FOR PROPHYLACTIC MEASURES, UNSPECIFIED SNOMED Code(s): 692982156 Comment: - Lovenox (7) Full code status Current Visit: Yes Status: Acute Code(s): Z78.9 - OTHER SPECIFIED HEALTH STATUS SNOMED Code(s): 356395100 Status and Disposition: If improved consider d/c tomorrow
--- NOTE | 2018-12-11 16:40 | PN ---
Progress Note - Progress Note Date of Service: 12/11/18 Note: S: POD #1; ABX day O: Vital Signs - 8 hr 12/11/18 12/11/18 11:55 15:13 Temperature 98.2 F 98 F Pulse Rate 69 68 Respiratory 18 16 Rate Blood Pressure 121/69 130/70 (mmHg) O2 Sat by Pulse 94 95 Oximetry Intake and Output Last 24 Hours 12/09/18 12/10/18 12/11/18 12/12/18 06:59 06:59 06:59 06:59 Intake Total 525 1120 Output Total 1050 500 Balance -525 620 Weight 365 lb 1.6 oz Intake: IV Fluids 105 980 ABX - ZOSYN 105 NS (0.9%) 980 Oral 420 140 Output: Urine 1050 500 Other: # Bowel Movements 0 PE: General, Heart, Lungs, Abdomen,... Labs: Diagnostics:
--- NOTE | 2018-12-11 16:54 | PN ---
Progress Note - Progress Note Date of Service: 12/11/18 Note: Surgery Progress: S: OR cancelled this a.m. after pt had large BM. At present continues to feel better. Has had add'l flatus and BMs. Has had some nausea but is also tolerating cranberry juice. O: Vital Signs - 8 hr 12/11/18 12/11/18 11:55 15:13 Temperature 98.2 F 98 F Pulse Rate 69 68 Respiratory 18 16 Rate Blood Pressure 121/69 130/70 (mmHg) O2 Sat by Pulse 94 95 Oximetry Gen: appears comfortable; NAD Heart: reg Lungs: clear ant Abd: nondistended; +BS, hypoactive; soft, nontender to palp A: SBO, resolving P: discussed diet w/ pt; will change to clears only for now; reassess in a.m.
[2018-12-11] MEDS ORDERED: Cetirizine* 10 MG TAB PO SCH (18:00)
[2018-12-11] MEDS ORDERED: Enoxaparin(*) 40 MG/0.4 ML SYR SUBCUT SCH (20:30)
[2018-12-11] MEDS: Mirtazapine TAB* 15 MG PO SCH (22:30)
[2018-12-12] MEDS: NS 0.9% 1000 ML** 1,000 ML IV SCH (03:22)
[2018-12-12 07:33] LABS: Calcium 8.4 mg/dL (8.6-10.3); Potassium 3.2 mmol/L (3.5-5.0)
[2018-12-12 07:38] LABS: BUN/Creatinine Ratio 10.1 (8-20); EGFR African American 97.5 (>60); EGFR Non-African American 80.6 (>60)
[2018-12-12] MEDS: Mometasone/Formoter 200/5 MDI INH SCH (07:41)
[2018-12-12] MEDS: Montelukast Sodium TAB* 10 MG PO SCH (07:41)
[2018-12-12] MEDS: Gabapentin CAP(*) 400 MG PO SCH (07:42)
[2018-12-12] MEDS: tiZANidine TAB* 2 MG PO SCH (07:43)
--- NOTE | 2018-12-12 09:32 | PN ---
Progress Note - Progress Note Date of Service: 12/12/18 Note: S: This is a 38 y/o female s/p resolved SBO yesterday [id number]. No need for surgery because had a bowel movement yesterday morning. Since then had one more bowel movement yesterday afternoon. States it is "normal" for her (not diarrhea or constipation), no blood. Had first solid food this morning and tolerating well. Extensive abdominal surgery history including ruptured appendix and bowel resection. No nausea, vomiting, chest pain, shortness of breath, fever, chills. Active medications are as follows: Acetaminophen (Tylenol Tab*) 650 mg PO Q6H PRN PRN Reason: FEVER/PAIN Last Admin: 12/12/18 06:40 Dose: 650 mg Albuterol (Ventolin 2.5 Mg/3 Ml Neb.Carmen*) 2.5 mg INH Q4H PRN PRN Reason: SOB/WHEEZING Buprenorphine/Naloxone (Suboxone 8 Mg-2 Mg Sl Film) 1 each SL FILM TID [facility] Last Admin: 12/11/18 23:30 Dose: Not Given Bupropion HCl (Bupropion Xl*) 300 mg PO 2100 [facility] Last Admin: 12/11/18 22:29 Dose: 300 mg Cetirizine HCl (Zyrtec*) 10 mg PO QPM [facility] Last Admin: 12/11/18 17:55 Dose: Not Given Enoxaparin Sodium (Lovenox(*)) 40 mg SUBCUT 2000 [facility] Last Admin: 12/11/18 22:31 Dose: 40 mg Gabapentin (Neurontin Cap(*)) 800 mg PO TID [facility] Last Admin: 12/12/18 07:42 Dose: Not Given Ibuprofen (Motrin Tab*) 600 mg PO Q8H PRN PRN Reason: FEVER/PAIN Last Admin: 12/12/18 07:41 Dose: 600 mg Mirtazapine (Remeron Tab*) 7.5 mg PO BEDTIME [facility] Last Admin: 12/11/18 22:30 Dose: 7.5 mg Mometasone Furoate/Formoterol Fumar (Dulera 200/5 Mdi*) 2 puff INH BID [facility] Last Admin: 12/12/18 07:41 Dose: 2 puff Montelukast Sodium (Singulair Tab*) 10 mg PO DAILY [facility] Last Admin: 12/12/18 07:41 Dose: 10 mg Sertraline HCl (Zoloft*) 75 mg PO 2100 [facility] Last Admin: 12/11/18 22:29 Dose: 75 mg Tizanidine HCl (Zanaflex Tab*) 4 mg PO TID [facility] Last Admin: 12/12/18 07:43 Dose: Not Given O: Vital Signs Temp 97.9 F 12/12/18 03:17 Pulse 64 12/12/18 03:17 Resp 20 12/12/18 07:30 BP 131/69 12/12/18 03:17 Pulse Ox 99 12/12/18 03:17 Intake & Output 12/11/18 12/12/18 12/12/18 18:59 06:59 18:59 Intake Total 2317 660 Output Total 500 1100 500 Balance 1817 -440 -500 Weight 363 lb 8 oz Intake: IV Fluids 1960 NS (0.9%) 1960 IVPB 217 ABX - ZOSYN 217 Oral 140 660 Output: Urine 500 1100 500 Other: # Bowel Movements 0 General: supine in bed, comfortable, no acute distress. A&O x 3. Cardio: regular rate and rhythm. Respiratory: lungs clear to auscultation throughout bilaterally. no wheezes or rhonchi Abdomen: soft, non-tender, nondistended. Well-healed prior surgical scars. No tenderness to palpation. Bowel sounds normoactive throughout. A: 38 y/o female s/p resolved bowel obstruction yesterday [id number]. Improving. P: Patient is improved, tolerating food and having bowel movements patient states she is ready for discharge patient lives alone, but states she can manage by herself
[2018-12-12] MEDS: Buprenorp/Nalox 8-2 MG FILM SL FILM SCH (10:44)
[2018-12-12 11:27] VITALS: BP 139/77
--- NOTE | 2018-12-12 12:33 | PN ---
Progress Note - Progress Note Date of Service: 12/12/18 SOAP: Subjective:ate solids,no nausea or vomiting;passing flatus;no abdominal pain; had 2 stools yesterday [] Objective: Vital Signs Temp 97.8 F 12/12/18 11:27 Pulse 68 12/12/18 11:27 Resp 17 12/12/18 11:27 BP 139/77 12/12/18 11:27 Pulse Ox 94 12/12/18 11:27 Intake & Output 12/11/18 12/12/18 12/12/18 18:59 06:59 18:59 Intake Total 2317 660 210 Output Total 500 1100 500 Balance 1817 -440 -290 Weight 363 lb 8 oz Intake: IV Fluids 1960 NS (0.9%) 1960 IVPB 217 ABX - ZOSYN 217 Oral 140 660 210 Output: Urine 500 1100 500 Other: # Bowel Movements 0 abd:+bs,obese,soft,nondistended,nontender throughout;no obvious masses or hernias [] Assessment:Hospital day#3,resolved SBO [] Plan:disch home today per Hospitalist service;advised Colace qhs and high fiber diet;followup with PCP []
--- NOTE | 2018-12-12 12:36 | PN ---
Subjective Date of Service: 12/12/18 Interval History: HD #3 on 12/12 38 F PMH OUD on MAT in recovery, asthma, GERD, HTN presents with SBO sx., sx resolve priro to surgery passed large BM and now continues ot be monitored VSS Seen in morning, tolerated diet had another BM, stable for d/c sugrery has signed off pt without complaints Objective Active Medications: Acetaminophen (Tylenol Tab*) 650 mg PO Q6H PRN PRN Reason: FEVER/PAIN Last Admin: 12/12/18 06:40 Dose: 650 mg Albuterol (Ventolin 2.5 Mg/3 Ml Neb.Carmen*) 2.5 mg INH Q4H PRN PRN Reason: SOB/WHEEZING Buprenorphine/Naloxone (Suboxone 8 Mg-2 Mg Sl Film) 1 each SL FILM TID [facility] Last Admin: 12/12/18 10:44 Dose: 1 each Bupropion HCl (Bupropion Xl*) 300 mg PO 2100 [facility] Last Admin: 12/11/18 22:29 Dose: 300 mg Cetirizine HCl (Zyrtec*) 10 mg PO QPM [facility] Last Admin: 12/11/18 17:55 Dose: Not Given Enoxaparin Sodium (Lovenox(*)) 40 mg SUBCUT 2000 [facility] Last Admin: 12/11/18 22:31 Dose: 40 mg Gabapentin (Neurontin Cap(*)) 800 mg PO TID [facility] Last Admin: 12/12/18 07:42 Dose: Not Given Ibuprofen (Motrin Tab*) 600 mg PO Q8H PRN PRN Reason: FEVER/PAIN Last Admin: 12/12/18 07:41 Dose: 600 mg Mirtazapine (Remeron Tab*) 7.5 mg PO BEDTIME [facility] Last Admin: 12/11/18 22:30 Dose: 7.5 mg Mometasone Furoate/Formoterol Fumar (Dulera 200/5 Mdi*) 2 puff INH BID [facility] Last Admin: 12/12/18 07:41 Dose: 2 puff Montelukast Sodium (Singulair Tab*) 10 mg PO DAILY [facility] Last Admin: 12/12/18 07:41 Dose: 10 mg Sertraline HCl (Zoloft*) 75 mg PO 2100 [facility] Last Admin: 12/11/18 22:29 Dose: 75 mg Tizanidine HCl (Zanaflex Tab*) 4 mg PO TID [facility] Last Admin: 12/12/18 07:43 Dose: Not Given Vital Signs - 8 hr 12/12/18 12/12/18 07:30 11:27 Temperature 97.9 F 97.8 F Pulse Rate 69 68 Respiratory 17 17 Rate Blood Pressure 140/76 139/77 (mmHg) O2 Sat by Pulse 95 94 Oximetry Oxygen Devices in Use Now: None Appearance: Pleasant woman Ears/Nose/Mouth/Throat: NL Teeth, Lips, Gums Neck: NL Appearance and Movements; NL JVP Respiratory: Symmetrical Chest Expansion and Respiratory Effort, Clear to Auscultation Cardiovascular: NL Sounds; No Murmurs; No JVD, RRR Abdominal: NL Sounds; No Tenderness; No Distention, No Hepatosplenomegaly Lymphatic: No Cervical Adenopathy, No Axillary Adenopathy Extremities: No Edema Skin: No Rash or Ulcers Neurological: Alert and Oriented x 3 Result Diagrams: 12/11/18 09:10 12/12/18 06:57 Assess/Plan/Problems-Billing Assessment: 38 F PMH OUD on MAT in recovery, asthma, GERD, HTN presents with SBO sx., sx resolve priro to surgery passed large BM stbale for dc - Patient Problems (1) Small bowel obstruction, partial Current Visit: Yes Status: Acute Code(s): K56.600 - PARTIAL INTESTINAL OBSTRUCTION, UNSPECIFIED TO CAUSE SNOMED Code(s): 638431004 Comment: - Resolved, advice stool softenr on d/c - Continue fluids - Stop abx (2) Opioid use disorder, mild, in early remission, on maintenance therapy, abuse Current Visit: Yes Status: Acute Code(s): F11.11 - OPIOID ABUSE, IN REMISSION SNOMED Code(s): 9616106 Comment: - Home dose 16mg daily, continue 8 TID (3) Depression Current Visit: Yes Status: Acute Code(s): F32.9 - MAJOR DEPRESSIVE DISORDER , SINGLE EPISODE, UNSPECIFIED SNOMED Code(s): 72308857 Comment: - continue home meds (4) Asthma Current Visit: Yes Status: Acute Code(s): J45.909 - UNSPECIFIED ASTHMA, UNCOMPLICATED SNOMED Code(s): 680283639 Comment: - PRN albuterol (5) HTN (hypertension) Current Visit: Yes Status: Acute Code(s): I10 - ESSENTIAL (PRIMARY) HYPERTENSION SNOMED Code(s): 62213930 Comment: - Continue to monitor normotensive (6) DVT prophylaxis Current Visit: Yes Status: Acute Code(s): Z29.9 - ENCOUNTER FOR PROPHYLACTIC MEASURES, UNSPECIFIED SNOMED Code(s): 823099117 Comment: - Lovenox (7) Full code status Current Visit: Yes Status: Acute Code(s): Z78.9 - OTHER SPECIFIED HEALTH STATUS SNOMED Code(s): 719658348 Status and Disposition: DC home
--- NOTE | 2018-12-12 13:38 | DS ---
CC: Dr. Angeles Thomas DISCHARGE SUMMARY: DATE OF ADMISSION: 12/10/18 DATE OF DISCHARGE: 12/12/18 PRIMARY CARE PROVIDER: Dr. Angeles Thomas. DISPOSITION AT THE TIME OF DISCHARGE: Stable. Discharged to home. PRIMARY DIAGNOSIS: Partial small-bowel obstruction. SECONDARY DIAGNOSES: 1. Asthma. 2. Hypertension. 3. Opiate use disorder, in recovery, on medication assisted therapy. 4. Depression. 5. Anxiety. MEDICATIONS ON DISCHARGE: 1. Gabapentin 800 mg p.o. t.i.d. 2. Bupropion 300 mg XL p.o. daily. 3. Ibuprofen 600 mg p.o. q.8 hours. 4. Buprenorphine/naloxone 60 mg sublingual daily. 5. Claritin 10 mg p.o. daily. 6. Mirtazapine 7.5 mg p.o. at bedtime. 7. Singulair 10 mg p.o. daily. 8. Sertraline 75 mg p.o. daily. 9. Tizanidine 4 mg p.o. t.i.d. 10. Chlorthalidone 25 mg p.o. daily. 11. Lisinopril 5 mg p.o. daily. 12. Montelukast 10 mg p.o. daily. 13. Ventolin p.r.n. inhaled q.4 hours for shortness of breath. Medication changes on this admission are none. HOSPITAL COURSE AND HISTORY OF PRESENT ILLNESS: This is a 38-year-old female with a past medical his tory as above who presented to the emergency room with pain, nausea, and vomiting for 2 days that hap pened acutely. She had not had a bowel movement. Imaging done in the emergency room showed concerni ng small-bowel obstruction with a transition point seen on CT abdomen. The patient was admitted for conservative management, placed on IV fluids, n.p.o. She had no improvement on hospital day 1 and lowe d not passed flatus or bowel movement and actually, the decision to go to surgery was made. Her hosp ital course by problem is as follows: 1. Small-bowel obstruction, which ultimately became partial small-bowel obstruction. The patient wa s prepped for surgery and then quite dramatically just before preoperative evaluation was to start in the OR, the patient had the urge to use the restroom and had a large bowel movement and thus, surger y was canceled. She was placed on n.p.o. and then advanced from clear to regular diet and tolerated w ell with subsequent bowel movements and no pain, and she was cleared by surgery to be returned to [facility] with a formal diagnosis of partial small-bowel obstruction. 2. Opiate use disorder, in recovery on medication assisted therapy. The patient had received sublin gual buprenorphine tablets for pain with good control. No other narcotics were used and she is disch arged on her home dose and will follow up with primary care. 3. Asthma. No complications during this hospitalization. Home medications were continued. 4. Hypertension. Home antihypertensives were held in the setting of n.p.o. initially, although resu med on discharge with no complications. 5. History of depression, anxiety, and ADD. Her home medications were continued. 6. DVT prophylaxis. The patient was ambulating throughout her stay. On the day of discharge, the patient was with normal physical exam, well appearing, ambulating, voidi ng freely, and tolerating diet with normoactive bowel sounds. No tenderness, no rebound, and no guar ding. Regular rate and rhythm. Lungs clear. Normal extremities. DIAGNOSTIC STUDIES/LAB DATA: Laboratory Data: Her labs on the day of discharge: Her BMP with mild h ypokalemia at 3.4, which was repleted prior to discharge. Otherwise, unremarkable. Last CBC shows a white blood cell count of 11.6, which is down from 16.4 on admission. Imaging and studies done during this testinclude abdomen and pelvis CT done on 12/10/18 which showed distention of small-bowel without dilatation, transition to decompressed small-bowel within the right aura-abdomen. Gallbladder ultrasound done 12/10/18 was unremarkable and negative for Phipps sign, o nly showing dilated up to 1.2 cm, but not shadowing gallstones. Transvaginal ultrasound done 9 showed left adnexal structure that corresponds to a cyst seen on 12/02/18 CT examination, complex c yst, and dilated right fallopian tube. Labs included a negative lipase, negative beta HCG, and normal LFTs initially, although mild AST and ALT elevation on 12/11/18. CONSULTANTS DURING THIS HOSPITALIZATION INCLUDE: Surgery who ultimately cleared the patient. ITEMS TO FOLLOW UP ON STATUS POST DISCHARGE: 1. Partial small-bowel obstruction. The patient is tolerating diet, no abdominal pain, and voiding freely with multiple bowel movements prior to discharge. We recommended bland diet and off work for an additional day status post discharge. 2. Incidental adnexal findings seen on radiologic imaging done in the emergency room during the work up of her partial small-bowel obstruction. The patient has complex cystic structures that may need a dditional transvaginal ultrasound followup per radiologic guidelines, although they could be compared to surveillance done in the past. While currently there is no radiologic indication for followup on these, if the patient has symptoms in the future, could consider routine imaging. On day of discharge, as noted above, the patient is stable to return to home, cleared by surgery, cou nseled to return to the emergency room if she has worsening abdominal pain; fevers; or new symptoms w hich she concurs and plan of care was reviewed with her on discharge, which she agrees with. TIME SPENT: Thirty-five minutes were spent in the planning of this discharge with over half of that spent directly at the bedside of the patient providing direct patient care. If there are any questio ns about the care of this patient during this hospitalization, please do not hesitate to reach out to the hospitalist team. [id number]/CPS #: [id number]
--- NOTE | 2018-12-12 15:20 | PN ---
Subjective Date of Service: 12/12/18 Interval History: Patient had bowel movement x1 after the one in OR. She had no nausea/vomitting. She was keen for home. Objective Vital Signs - 8 hr 12/12/18 12/12/18 07:30 11:27 Temperature 97.9 F 97.8 F Pulse Rate 69 68 Respiratory 17 17 Rate Blood Pressure 140/76 139/77 (mmHg) O2 Sat by Pulse 95 94 Oximetry Oxygen Devices in Use Now: None Exam: Well, lying on the bed comfortably Heart normal S1, S2, no murmur Lung clear Abdomen: soft, non tender Calves supple, non tender Result Diagrams: 12/11/18 09:10 12/12/18 06:57 Assess/Plan/Problems-Billing Assessment: 38 F PMH OUD on MAT in recovery, asthma, GERD, HTN presents with SBO sx., sx resolve prior to surgery passed large BM. She was able to tolerate food well today, and she was ready to go home. Surgical team agreed with team's plan to discharge patient. - Patient Problems (1) Small bowel obstruction, partial Status: Acute Code(s): K56.600 - PARTIAL INTESTINAL OBSTRUCTION, UNSPECIFIED TO CAUSE SNOMED Code(s): 799700971 Comment: - Resolved, advice stool softenr on d/c - education on high fiber diet Status and Disposition: DC home Attestation Documenting Resident: Suzy Chang Supervising Physician: Rea Melissa Attestation: This service has been performed in part by a resident under the direction of a teaching physician.I, Rea Melissa, performed the service, or was physically present during the critical, or rebollar portions of the service, furnished by the resident. I participated in the management of the patient.
== END 2018-12-12 14:00 | disposition home or self-care (01) | DRG 247 ==
LOC: ED 08:04 → SSU 15:52
PROVIDERS: ADMIT Hospitalist; ATTEND Internal Medicine
DX: K56.600 Partial intestinal obstruction, unspecified as to cause (principal); Z68.43 Body mass index [BMI] 50.0-59.9, adult; J45.909 Unspecified asthma, uncomplicated; I10 Essential (primary) hypertension; F32.9 Major depressive disorder, single episode, unspecified; F41.9 Anxiety disorder, unspecified; K21.9 Gastro-esophageal reflux disease without esophagitis; F11.11 Opioid abuse, in remission; G47.33 Obstructive sleep apnea (adult) (pediatric); F98.8 Other specified behavioral and emotional disorders with onset usually occurring in childhood and adolescence; E66.01 Morbid (severe) obesity due to excess calories; Z82.49 Family history of ischemic heart disease and other diseases of the circulatory system; Z56.0 Unemployment, unspecified
CPT/HCPCS: 36415; 74177; 76705; 76830; 80048; 80053; 81003; 83605; 83690; 83735; 84702; 85025; 86140; 93005; 94640; 99284; A9270-GY; J0780; J1650; J2405; J2543; Q9967